=== PATIENT | female | born 1985 | race Caucasian/White ===

== ENCOUNTER 2022-05-30 07:35 | Outpatient (CLI) | payer BC, SELFPAY ==
[2022-05-30 19:30] LABS: Hematocrit 46.5 % (37.0-47.0); Hemoglobin 15.1 g/dL (12.0-15.0); Mean Corpuscular HGB Conc 32.5 g/dl (32-36); Mean Corpuscular Hemoglobin 29.5 pg (26-34); Platelet Count Result 321 k/mm3 (150-375); Red Blood Count 5.11 M/mm3 (4.2-5.4); Red Cell Distribution Width 12.7 % (11.5-14.5); White Blood Count 6.9 K/mm3 (4.5-10.0)
[2022-05-30 20:08] LABS: Alanine Aminotransferase 19 U/L (6-35); Albumin Level 4.1 g/dL (3.5-5.1); Alkaline Phosphatase 109 U/L (38-126); Anion Gap 9 mmol/L (8-16); Aspartate Amino Transferase 39 U/L (14-36); Bilirubin,Total 0.5 mg/dL (0.2-1.3); Blood Urea Nitrogen 10 mg/dL (7-17); Calcium 8.9 mg/dL (8.4-10.2); Carbon Dioxide 24 mmol/L (22-30); Chloride 104 mmol/L (98-107); Cholesterol 193 mg/dL (0-200); Estimated Glomerular Filt Rate > 60; Glucose 79 mg/dL (65-110); HDL Direct 56 mg/dL; Potassium 4.1 mmol/L (3.4-5.0); Sodium 137 mmol/L (137-145); Triglycerides 302 mg/dL (<150)
[2022-05-30 20:19] LABS: LDL Cholesterol Direct 69 mg/dL
== END 2022-05-30 07:36 | disposition home or self-care (01) ==
LOC: ANHBWCLAB 07:37
PROVIDERS: PCP Family Medicine; Visit Provider Family Medicine
DX: Z00.00 Encounter for general adult medical examination without abnormal findings (principal); F41.9 Anxiety disorder, unspecified; K58.9 Irritable bowel syndrome, unspecified; G43.909 Migraine, unspecified, not intractable, without status migrainosus; R00.0 Tachycardia, unspecified
CPT/HCPCS: 36415; 80053; 80061; 84443; 85027

== ENCOUNTER 2022-08-31 12:48 | Emergency (ER) | payer BC, SELFPAY ==
--- NOTE | ~2022-08-31 | CT_ITS ---
EXAMINATION: CT abdomen pelvis w con DATE: 08/31/2022 14:45 INDICATION: Right lower abdominal pain TECHNIQUE: Computed tomography (CT) of the abdomen and pelvis was performed with 100 mL Omnipaque-350 intravenous contrast. Automated exposure control and iterative reconstruction technique were employe d. The dose-length product was 1448.99 mGy-cm. COMPARISON: None FINDINGS: Lung bases are clear. Heart size is normal. No pericardial or pleural effusion. Focal hepatic steatos is at the ligamentum teres. Gallbladder, spleen, pancreas, bilateral adrenal glands and kidneys are n ormal. There are few scattered colonic diverticula without adjacent inflammatory stranding to suggest diverticulitis. There is edematous-appearing bowel wall thickening involving several loops of small bowel in the left abdomen with associated mesenteric hyperemia consistent with an enteritis. The more proximal to distal small bowel appear normal. No obstruction. Normal appendix. Small amount of likel y reactive ascites in the lower abdomen and pelvis. No pneumatosis, abscess or free intraperitoneal g as. Bladder, anteverted uterus and bilateral adnexa are unremarkable. No pathologically enlarged abdo radha or pelvic lymphadenopathy. Mild thoracic and lumbar and moderate lumbosacral spondylosis. IMPRESSION: 1. Edematous wall thickening of a few nonobstructed loops of small bowel in the abdomen consistent wi th an enteritis is most likely infectious or inflammatory in etiology. 2. Likely reactive small amount of ascites in the lower abdomen and pelvis. Reviewed, dictated and finalized at location A. IMPRESSION: 1. Edematous wall thickening of a few nonobstructed loops of small bowel in the abdomen consistent with an enteritis is most likely infectious or inflammatory in etiology. 2. Likely reactive small amount of ascites in the lower abdomen and pelvis.
[2022-08-31 13:08] VITALS: BP 159/90; PULSE 104; RESP 14; TEMP 36.4; O2SAT 99
--- NOTE | 2022-08-31 13:27 | ED.ABDPAIN ---
HPI - Abdominal Pain General Chief Complaint: Abdominal Pain Stated Complaint: abdominal pain Time Seen by Provider: 08/31/22 13:12 Source: patient, RN notes reviewed and old records reviewed Mode of arrival: ambulatory Limitations: no limitations History of Present Illness HPI narrative: This is a 37 year old female who presents for evaluation of right lower abdominal pain. She developed generalizeed abdominal pain yesterday and it has moved to be more right lower abdominal pain. She has had decreased appetite with nausea and vomiting. She has been drinking water today, but her last meal was yesterday afternoon. Her pain is worse with breathing and movement. She has not taken any medication for pain. She rates her pain as 6/10. LMP end of July. Related Data Home Medications Medication Instructions Recorded Confirmed Zyrte BYMOUTH 05/23/22 fluoxetine 40 mg capsule 40 mg PO DAILY 05/23/22 lamotrigine 100 mg tablet 100 mg PO DAILY 05/23/22 norethindrone 1 mg-ethinyl 1 tablet PO DAILY 05/23/22 estradiol 35 mcg (21) tablet (Nortrel) Allergies Allergy/AdvReac Type Severity Reaction Status Date / Time topiramate Allergy Intermediate HIVES Verified 07/09/22 11:40 Review of Systems Constitutional: Constitutional: Denies weakness Cardiovascular: Cardiovascular: Denies syncope, Denies rapid heart rate, Denies irregular heart rhythm, Denies leg edema and Denies dyspnea Respiratory: Respiratory: Denies chest congestion, Denies hemoptysis, Denies excessive phlegm production and Denies dyspnea Gastrointestinal: Gastrointestinal: Reports abdominal pain, Denies hematochezia, Denies diarrhea, Reports nausea and Reports vomiting Genitourinary: Genitourinary: Denies hematuria and Denies dysuria Musculoskeletal: Musculoskeletal: Denies joint swelling, Denies loss of height and Denies muscle weakness Neurologic: Denies syncope, Denies focal weakness and Denies weakness PMFSH Past Medical History Medical History Anxiety Hypertension IBS (irritable bowel syndrome) Tachycardia Surgical History Surgical History (Updated 08/31/22 @ 13:30 by Abigail Jarvis MD) H/O section Family History Family History (Updated 12/01/15 @ 23:19 by DOCTOR UNKNOWN) Grandparent Family history of heart disease in male family member before age 55 Diabetes mellitus Mother Family history of thyroid disease Father Family history of bipolar disorder Cerebrovascular accident Family history of diabetes mellitus in first degree relative Other Family history of cardiovascular disease Family history of malignant neoplasm of breast Hypertension Social History Social History Smoking status: Never smoker Alcohol intake: current Lack of Transportation: No Lack of Food: Never True Current Housing: I Have Housing Concerned About Future Housing: No Difficulty Paying Gas/Electric Bills: No Difficulty Paying for Meds: No Currently Unemployed: No Education: Bachelor's Degree Difficulty w/ Childcare or Family Care: No Living arrangements: 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 Gender identity (if verbalized by the patient): Female Agree to blood products: Yes Exam Const: General: no acute distress and alert Nutritional Appearance: obese Orientation/consciousness: patient oriented x3 Limitations: no limitations HENMT: Head: normal to inspection Eyes: EOM: EOMs intact bilaterally Chest: Chest palpation & inspection: normal inspection of the chest Resp: Effort & Inspection: normal respiratory effort Auscultation: clear to auscultation bilaterally Cardio: Rate: regular rate Rhythm: regular rhythm Heart sounds: no murmurs GI: GI Palp: Yes Soft to palpation, Yes Tenderness to palpation present (GI) (RLQ), No Guarding due to palpation p
[2022-08-31 13:46] LABS: Basophils Percent Auto 0.3 % (0.2-1.2); Eosinophils Absolute Auto 0.1 K/mm3 (0-0.3); Eosinophils Percent Auto 0.5 % (0-4.4); Hematocrit 41.8 % (37.0-47.0); Hemoglobin 14.1 g/dL (12.0-15.0); Immature Granulocyte Absolute 0.05 K/mm3 (0.00-0.031); Immature Granulocyte Percent A 0.4 % (0-0.5); Lymphocytes Absolute Auto 1.73 K/mm3 (0.9-3.2); Lymphocytes Percent Auto 14.6 % (18.3-44.2); Mean Corpuscular HGB Conc 33.7 g/dl (32-36); Mean Corpuscular Hemoglobin 30.3 pg (26-34); Mean Corpuscular Volume 89.9 fl (80-100); Mean Platelet Volume 9.2 fl (7.4-10.4); Monocytes Absolute Auto 0.8 K/mm3 (0.1-0.6); Monocytes Percent Auto 6.3 % (2.6-8.5); Neutrophils Absolute Auto 9.2 K/mm3 (1.3-6.7); Neutrophils Percent Auto 77.9 % (45.5-73.1); Platelet Count Result 367 k/mm3 (150-375); Red Blood Count 4.65 M/mm3 (4.2-5.4); Red Cell Distribution Width 13.5 % (11.5-14.5); White Blood Count 11.8 K/mm3 (4.5-10.0)
[2022-08-31 13:53] LABS: Appearance Urine Cloudy (Clear); Bacteria Urine 1+ /hpf; Bilirubin Urine Negative (Negative); Blood Urine 2+ (Negative); Color Urine Dark Yellow (Yellow); Glucose Urine UA Negative (Negative); Ketones Urine 2+ mg/dL (Negative); Leukocyte Esterase Ur Trace LEU/UL (Negative); Need Manual Microscopic Reviewed; Nitrate Urine Negative (Negative); Protein Urine 1+ mg/dL (Negative); Specific Grav Ur 1.023 (1.001-1.035); Squamous Epithelial Cell Urine Moderate /hpf (Few); pH Urine 5.5 (5.0-9.0)
[2022-08-31] MEDS: ONDANSETRON INJ 4 MG/2 ML VIAL IV PUSH (13:56)
[2022-08-31] MEDS: HYDROmorphone HCL INJ (*CRX) 1 MG/ML SYR 0.5 MG IV PUSH (13:56)
[2022-08-31 13:59] LABS: Alanine Aminotransferase 26 U/L (6-35); Albumin Level 4.4 g/dL (3.5-5.1); Alkaline Phosphatase 106 U/L (38-126); Anion Gap 8 mmol/L (8-16); Aspartate Amino Transferase 28 U/L (14-36); Bilirubin,Total 0.7 mg/dL (0.2-1.3); Blood Urea Nitrogen 9 mg/dL (7-17); Calcium 9.3 mg/dL (8.4-10.2); Carbon Dioxide 26 mmol/L (22-30); Chloride 100 mmol/L (98-107); Estimated CRCL calculation 101 ml/min; Estimated Glomerular Filt Rate > 60; Glucose 91 mg/dL (65-110); Lipase 91 U/L (23-300); Potassium 3.9 mmol/L (3.4-5.0); Sodium 134 mmol/L (137-145)
[2022-08-31 14:03] VITALS: BP 154/70; PULSE 84; RESP 18; O2SAT 100
[2022-08-31 14:12] LABS: Add Urine Microscopic? YES
[2022-08-31] MEDS: metroNIDAZOLE 250 MG TABLET 500 MG PO (15:43)
[2022-08-31] MEDS: CIPROFLOXACIN 500 MG TAB PO (15:44)
[2022-08-31 16:25] VITALS: BP 136/84; PULSE 90; RESP 18; O2SAT 99
== END 2022-08-31 16:27 | disposition home or self-care (01) ==
PROVIDERS: Emergency Provider General Practice; PCP Family Medicine
DX: K52.9 Noninfective gastroenteritis and colitis, unspecified (principal); I10 Essential (primary) hypertension; K58.9 Irritable bowel syndrome, unspecified; F41.9 Anxiety disorder, unspecified; Z79.85 Long-term (current) use of injectable non-insulin antidiabetic drugs
CPT/HCPCS: 36415; 74177; 80053; 81001; 81025; 83690; 85025; 87086; 87088; 96374; 96375; 99284; A9270; J1170; J2405; Q9967

== ENCOUNTER 2023-07-09 01:48 | Day surgery (SDC) | payer BC, SELFPAY ==
--- NOTE | 2023-07-02 17:27 | PC.NURSE ---
Report to the Outpatient Waiting Room, entrance under the green pavilion located off [facility], at time 1330 on date 07/09/23. Planned Procedure Time: 1530. Time changes happen often and if your time is changed the preop area will call you the afternoon before. - You and your visitor will be asked to self-screen and do not enter if you have any COVID symptoms. - A mask is optional within the hospital at this time. Patients may have clear liquids (water, carbonated beverages, clear teas, apple juice) until 3 hours prior to surgery with a maximum of 20 ounces. 1230 - No food from midnight until time of surgery - Infants may have breast milk until 4 hours before surgery, formula 6 hours prior to surgery. - Children will be allowed to drink immediately following surgery. If applicable, please bring a bottle or sippy cup to assist with drinking. Juice, water, soda, and popsicles are readily available. For infants on formula, please bring formula the day of surgery. Pacifiers are allowed. Take the following medications with a SIP of water the morning of surgery: PROZAC, ALBUTEROL INHALER DO NOT STOP ANY OF YOUR OTHER PRESCRIPTION MEDICATIONS PRIOR TO SURGERY ?EXCEPT THE FOLLOWING Medications to discontinue per physician TANIKA MEI Date to take last dose Please no make-up, nail kazakh, hairspray, perfume, deodorant, or body powder the day of surgery. No jewelry (including any body piercings) or valuables the day of surgery, leave them at home. Please take a shower or bath the night before, or the morning of, surgery with an antibacterial soap. Wear comfortable, loose fitting clothing. Children are encouraged to wear pajamas. - Jewelry must be removed prior to entering the operating room. Rings and piercings that are not removed may be cut off. - The hospital will not accept responsibility for valuables. - Please leave all valuables, including medications, at home the day of surgery. If you are going home after surgery, a licensed day haul or farm charter bus driver must drive you home. - NO public transportation without another adult if you receive anesthesia. - We recommend that an adult stay with you for 24 hours following discharge. - We also recommend that you do not drive, make important decision, drink alcoholic beverages, or take any drugs that were not prescribed by your health care provider for at least 24 hours after your discharge time. For Pediatric surgeries, we recommend two adults accompany the child home. Follow any additional instructions given to you from your surgeon. If you or anyone in your household have experienced Covid symptoms in the past week, please notify your surgeon or the nurse liaison at the phone number below for possible testing. Telephone instructions given to PATIENT- TELMA GOODMAN and asked if any additional questions and then verbalized understanding. Patient advised to call surgeon office or pre surgery nurse liaison [phone] if any additional questions.
[2023-07-02 17:41] VITALS: BMI 51.5
--- NOTE | 2023-07-08 14:20 | WPDANESEPPF ---
Anes - Initial Pre Proc Eval Procedure: Operation Date: 07/09/23 14:30 Proposed Procedures p Laparoscopic Bilateral Tubal Sterilization with Fallopian Rings, - Kalyan Elliott MD s Hysteroscopy Dilation and Curettage Glenys Endometrial Ablation - Kalyan Elliott MD Date/Time: 07/08/23 14:20 Surgeon: Kalyan Elliott MD Pre Op Diagnosis: desires sterilizatio, heavy bleeding, dysmenorrhea Patient Data Age: 38 Gender: F Height: 1.63 m Weight: 136.3 kg Allergies Allergy/AdvReac Type Severity Reaction Status Date / Time topiramate Allergy Intermediate HIVES Verified 07/02/23 17:06 Home Medications Medication Instructions Recorded Confirmed Type Zyrtec 1 tab-cap PO DAILY 05/23/22 07/02/23 History albuterol sulfate 90 mcg/actuation 1 inh inhalation Q4H PRN shortness 05/23/22 07/02/23 Rx aerosol inhaler of breath or wheezing #8.5 grams fluoxetine 40 mg capsule 40 mg PO DAILY 05/23/22 07/02/23 History lamotrigine 100 mg tablet 100 mg PO HS 05/23/22 07/02/23 History norethindrone 1 mg-ethinyl 1 tablet PO HS 05/23/22 07/02/23 History estradiol 35 mcg (21) tablet (Nortrel) fluticasone propionate 50 2 spray intranasal DAILY 11/26/22 07/02/23 History mcg/actuation nasal spray,suspension (Flonase Allergy Relief) amlodipine 10 mg tablet 10 mg PO QPM 07/02/23 07/02/23 History azelastine 137 mcg (0.1 %) nasal 1 spray intranasal HS 07/02/23 07/02/23 History spray aerosol losartan 25 mg tablet 25 mg PO QPM 07/02/23 07/02/23 History metoprolol succinate 25 mg 25 mg PO HS 07/02/23 07/02/23 History tablet,extended release 24 hr Patient hx anesthesia problems: none Family hx anesthesia problems: none Results Review: All pre-operative results and documents have been reviewed as part of the pre-operative evaluation. [facility] Past Medical History Medical History Anxiety Asthma Bipolar disorder GERD (gastroesophageal reflux disease) Hypertension IBS (irritable bowel syndrome) Tachycardia Surgical History Surgical History H/O section Family History Family History Grandparent Family history of heart disease in male family member before age 55 Diabetes mellitus Mother Family history of thyroid disease Father Family history of bipolar disorder Cerebrovascular accident Family history of diabetes mellitus in first degree relative Other Family history of cardiovascular disease Family history of malignant neoplasm of breast Hypertension Social History Social History Smoking status: Never smoker Alcohol intake: current Lack of Transportation: No Lack of Food: Never True Current Housing: I Have Housing Concerned About Future Housing: No Difficulty Paying Gas/Electric Bills: No Difficulty Paying for Meds: No Currently Unemployed: No Education: Bachelor's Degree Difficulty w/ Childcare or Family Care: No Living arrangements: 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 Gender identity (if verbalized by the patient): Female Spiritual care concerns: No Agree to blood products: Yes Anes - Eval Final PreProcedure Day of Procedure 07/08/23 14:20 Patient weight: super morbidly obese Heart: regular rate and rhythm Lungs: clear to auscultation Airway: Mallampati scale class III Neurological: alert and oriented Last oral intake: >/= 8 hours ASA classification: III Emergent: no Anesthetic plan: proceed Anesthesia type and monitoring: general ETT and standard monitoring Results Review: All pre-operative results and documents have been reviewed as part of the pre-operative evaluation. Informed Consent: The patient's anesthetic plan and its attendant risks and benefits were discussed with the ken
[2023-07-09] VITALS (8 sets, daily range): BP systolic 123–154; BP diastolic 74–85; PULSE 75–83; RESP 11–15; TEMP 36.4–36.8; O2SAT 98–100; BMI 50.3
--- NOTE | 2023-07-09 12:22 | PM.IMHP ---
H&P: HPI History of Present Illness Date/Time: 07/09/23 12:22 Chief Complaint: Heavy periods Narrative: 38 yo who takes Nortrel continuously to control heavy menses. However, now her dog food dough mixer would like her to get off the pill. She does not desire future childbearing, and is interested in surgical management of her problem. Review of Systems Review of Systems: All systems reviewed & are unremarkable except as noted in HPI and below PMFSH Past Medical History Medical History Anxiety Asthma Bipolar disorder GERD (gastroesophageal reflux disease) Hypertension IBS (irritable bowel syndrome) Tachycardia Surgical History Surgical History H/O section Family History Family History Grandparent Family history of heart disease in male family member before age 55 Diabetes mellitus Mother Family history of thyroid disease Father Family history of bipolar disorder Cerebrovascular accident Family history of diabetes mellitus in first degree relative Other Family history of cardiovascular disease Family history of malignant neoplasm of breast Hypertension Social History Social History Smoking status: Never smoker Alcohol intake: current Lack of Transportation: No Lack of Food: Never True Current Housing: I Have Housing Concerned About Future Housing: No Difficulty Paying Gas/Electric Bills: No Difficulty Paying for Meds: No Currently Unemployed: No Education: Bachelor's Degree Difficulty w/ Childcare or Family Care: No Living arrangements: 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 Gender identity (if verbalized by the patient): Female Spiritual care concerns: No Agree to blood products: Yes Meds Home Medications and Allergies Home Medications Medication Instructions Recorded Confirmed Type Zyrtec 1 tab-cap PO DAILY 05/23/22 07/02/23 History albuterol sulfate 90 mcg/actuation 1 inh inhalation Q4H PRN shortness 05/23/22 07/02/23 Rx aerosol inhaler of breath or wheezing #8.5 grams fluoxetine 40 mg capsule 40 mg PO DAILY 05/23/22 07/02/23 History lamotrigine 100 mg tablet 100 mg PO HS 05/23/22 07/02/23 History norethindrone 1 mg-ethinyl 1 tablet PO HS 05/23/22 07/02/23 History estradiol 35 mcg (21) tablet (Nortrel) fluticasone propionate 50 2 spray intranasal DAILY 11/26/22 07/02/23 History mcg/actuation nasal spray,suspension (Flonase Allergy Relief) amlodipine 10 mg tablet 10 mg PO QPM 07/02/23 07/02/23 History azelastine 137 mcg (0.1 %) nasal 1 spray intranasal HS 07/02/23 07/02/23 History spray aerosol losartan 25 mg tablet 25 mg PO QPM 07/02/23 07/02/23 History metoprolol succinate 25 mg 25 mg PO HS 07/02/23 07/02/23 History tablet,extended release 24 hr Allergies Allergy/AdvReac Type Severity Reaction Status Date / Time topiramate Allergy Intermediate HIVES Verified 07/02/23 17:06 Exam Const: Orientation/consciousness: patient oriented x3 Other: Well-developed, well-nourished female in no acute distress. Neck: Thyroid: thyroid normal Lymphatic: no lymphadenopathy noted (in neck, axilla or inguinal nodes) Resp: Effort & Inspection: normal respiratory effort Auscultation: clear to auscultation bilaterally Cardio: Rate: regular rate Rhythm: regular rhythm Heart sounds: S1 normal heart sound present and S2 normal heart sound present GI: Other: ABD: Soft, nontender, nondistended. No guarding or rebound tenderness. No hepatosplenomegaly. : General: Yes no CVA tenderness Other: External genitalia: normal female hair distribution, without lesion. Urethral meatus: no lesion, non prolapsed. Bladder: no mass, nontender Vagina: well-estr
[2023-07-09] MEDS: LACTATED RINGERS 1,000 ML 30 ML IV CONT ×2 (13:47→17:15)
[2023-07-09] MEDS: ACETAMINOPHEN 500 MG TABLET 1000 MG PO (13:47)
[2023-07-09] MEDS: KETOROLAC 15 MG/ML VIAL (*BKC) IV PUSH (13:47)
[2023-07-09] MEDS: SCOPOLAMINE 1 MG PATCH 1 PATCH TRANSDERM (14:10)
--- NOTE | 2023-07-09 14:38 | WPDHPUPDATE1 ---
History and Physical Update Update Date/Time: 07/09/23 14:38 History and Physical has been reviewed, including an updated exam of the patient. There are NO changes in the patient's condition. Risks, benefits, and alternatives have been discussed and questions answered. Patient agrees to proceed with procedure.
[2023-07-09] MEDS: ceFAZolin SODIUM 1 GM VIAL 2 GM IV PUSH (16:20)
[2023-07-09] MEDS: LIDOCAINE HCL 1% LOCAL INJ 20 ML VIAL 30 ML INFILTRATE (16:24)
--- NOTE | 2023-07-09 16:34 | P.OP_ITS ---
Procedure Note - Detailed Date of Procedure 07/09/23 Pre-op Diagnosis Menometrorrhagia Desired sterility Post-op Diagnosis Same Procedure Performed Laparoscopic bilateral tubal ligation with Falope rings Hysteroscopy Dilation and sharp curettage Attempted endometrial ablation Surgeon Kalyan Elliott MD Anesthesia General and Local (1% lidocaine) Findings Normal-appearing uterus, tubes and ovaries. The endometrial cavity was unremarkable. Both tubal ostia were visible. Description of Procedure The patient was taken to the operating room where general endotracheal anesthesia was administered. She was prepared and draped in the usual sterile fashion in dorsal lithotomy position. The bladder was drained with a red rubber catheter. A sterile speculum was placed into the vagina. The anterior lip of the cervix was grasped with a single-tooth tenaculum. The acorn uterine manipulator was placed. The speculum was withdrawn. Gloves were changed and attention was turned the abdomen. An infraumbilical skin incision was made with a scalpel. The abdomen was tented and a 5mm bladeless trocar was advanced under direct laparoscopic visualization. Pneumoperitoneum was administered using carbon dioxide gas. A survey of the pelvis and abdomen revealed the findings noted above. A second skin incision was made in the midline above the symphysis pubis and an 8mm bladeless trocar was advanced under direct laparoscopic visualization. The fallopian tube on the right side was followed out to the fimbriated end for identification. It was then grasped in the midportion with the Falope ring applicator. The Falope ring was tented applied. A good loop of tube was noted to be distal to the ring. Hemostasis was excellent. The device was reloaded and the contralateral tube was similarly identified and ligated. An excellent application was noted here as well. A total of 6mL of 1% lidocaine was infiltrated into the serosa of the proximal tubes for postoperative anesthesia. The ports were withdrawn. The gas was allowed to escape. The skin incisions were reapproximated using interrupted subcuticular sutures of 4 0 Vicryl. Dermaflex was applied externally. Attention was directed back to the vagina, where the acorn manipulator was withdrawn and the speculum reintroduced. Ten mL of 1% lidocaine was administered in a paracervical block. The cervix was then gently dilated using Hegar dilators until an 8 mm dilator could be passed. Hysteroscopy was performed using sterile saline as a distention medium. Findings are as noted above. Sharp curettage was then performed, and endometrial curettings were collected on a Telfa pad and passed off to be sent to pathology. Finally, the the Glenys device was advanced and endometrial ablation attempted. However, an error message suggested possible uterine perforation. A second look was taken with the hysteroscope, but no obvious perforation was noted. It was noted that the uterus was sharply anteverted, increasing the chances of perforation. At this point the procedure was term inated. The tenaculum was removed. Hemostasis was excellent. Sponge, lap, needle and instrument counts were correct. The patient was awakened and taken to the recovery room in stable condition. I was present and scrubbed through the entire procedure. Implants Falope rings x 2 Estimated Blood Loss 5 Drains No Packing No Pathology Yes (endometrial curettings) Complications Other complications (Possible uterine perforation) Condition Stable Disposition PACU
[2023-07-09] MEDS: ONDANSETRON INJ 4 MG/2 ML VIAL IV PUSH (16:48)
[2023-07-09] MEDS: fentaNYL CITRATE INJ (*CRX) 100 MCG/2 ML VIAL 25 MCG IV PUSH ×2 (16:51→16:59)
[2023-07-09] MEDS: diphenhydrAMINE HCl INJ 50 MG/ML VIAL 12.5 MG IV PUSH (17:41)
[2023-07-09] MEDS: oxyCODONE HCL (*CRX) 5 MG TAB IR PO (18:00)
== END 2023-07-09 18:51 | disposition home or self-care (01) ==
PROVIDERS: PCP Family Medicine; Visit Provider Obstetrics & Gynecology
PROC: (CPT 58671; principal; 2023-07-09 14:30)
PROC: 0U5B8ZZ Destruction of Endometrium, Via Natural or Artificial Opening Endoscopic (ICD-10-PCS; CPT 58563; 2023-07-09 14:30)
DX: N92.1 Excessive and frequent menstruation with irregular cycle (principal); Z30.2 Encounter for sterilization; Z53.8 Procedure and treatment not carried out for other reasons; J45.909 Unspecified asthma, uncomplicated; I10 Essential (primary) hypertension; K21.9 Gastro-esophageal reflux disease without esophagitis; F41.9 Anxiety disorder, unspecified; E66.01 Morbid (severe) obesity due to excess calories; Z68.43 Body mass index [BMI] 50.0-59.9, adult; Z79.51 Long term (current) use of inhaled steroids
CPT/HCPCS: 58563; 58671; 88305; A4264; A9270; J0690; J1100; J1200; J1885; J2250; J2405; J2704; J3010; J7120

== ENCOUNTER 2023-10-28 09:41 | Outpatient (CLI) | payer BC, SELFPAY ==
[2023-10-28 19:25] LABS: Alanine Aminotransferase 34 U/L (6-35); Albumin Level 4.4 g/dL (3.5-5.1); Alkaline Phosphatase 153 U/L (38-126); Anion Gap 9 mmol/L (4-12); Aspartate Amino Transferase 53 U/L (14-36); Bilirubin,Total 0.6 mg/dL (0.2-1.3); Blood Urea Nitrogen 11 mg/dL (7-17); Calcium 9.4 mg/dL (8.4-10.2); Carbon Dioxide 27 mmol/L (22-30); Chloride 101 mmol/L (98-107); Cholesterol 173 mg/dL (0-200); Estimated Glomerular Filt Rate > 60; Glucose 89 mg/dL (65-110); HDL Direct 53 mg/dL; Potassium 4.2 mmol/L (3.4-5.0); Sodium 137 mmol/L (137-145); Triglycerides 168 mg/dL (<150)
[2023-10-28 19:37] LABS: LDL Cholesterol Direct 83 mg/dL
[2023-10-28 19:44] LABS: Basophils Absolute Auto 0.1 K/mm3 (0.0-0.1); Basophils Percent Auto 0.6 % (0.2-1.2); Eosinophils Absolute Auto 0.1 K/mm3 (0-0.3); Eosinophils Percent Auto 1.4 % (0-4.4); Hematocrit 42.4 % (37.0-47.0); Hemoglobin 13.7 g/dL (12.0-15.0); Immature Granulocyte Absolute 0.03 K/mm3 (0.00-0.031); Immature Granulocyte Percent A 0.3 % (0-0.5); Lymphocytes Absolute Auto 1.52 K/mm3 (0.9-3.2); Lymphocytes Percent Auto 17.6 % (18.3-44.2); Mean Corpuscular HGB Conc 32.3 g/dl (32-36); Mean Corpuscular Hemoglobin 30.2 pg (26-34); Mean Corpuscular Volume 93.6 fl (80-100); Monocytes Absolute Auto 0.6 K/mm3 (0.1-0.6); Monocytes Percent Auto 6.6 % (2.6-8.5); Neutrophils Absolute Auto 6.3 K/mm3 (1.3-6.7); Neutrophils Percent Auto 73.5 % (45.5-73.1); Platelet Count Result 322 k/mm3 (150-375); Red Blood Count 4.53 M/mm3 (4.2-5.4); Red Cell Distribution Width 13.2 % (11.5-14.5); White Blood Count 8.6 K/mm3 (4.5-10.0)
== END 2023-10-28 09:42 | disposition home or self-care (01) ==
PROVIDERS: PCP Nurse Practitioner Adult Health; Visit Provider Nurse Practitioner Adult Health
DX: I10 Essential (primary) hypertension (principal); R00.2 Palpitations; E78.1 Pure hyperglyceridemia
CPT/HCPCS: 36415; 80053; 80061; 83735; 84443; 85025

== ENCOUNTER 2023-11-08 07:51 | Outpatient (CLI) | payer BC, SELFPAY ==
--- NOTE | ~2023-11-08 | US_ITS ---
EXAMINATION: US abdomen limited DATE: 11/08/2023 08:16 INDICATION: Abnormal levels of other serum enzymes. TECHNIQUE: Multiple grayscale and Doppler ultrasound images of the abdomen were obtained. COMPARISON: CT abdomen and pelvis 08/31/2022 FINDINGS: The visualized portions of the head and body of the pancreas are normal. There is diffuse h epatic steatosis. There is normal flow in main portal vein. The gallbladder is normal in size. No gal lstones or gallbladder wall thickening. There is no sonographic Marie's sign. The common duct is nor mal and measures 3 mm. IMPRESSION: 1. Diffuse hepatic steatosis. Reviewed, dictated and finalized at location A.
== END 2023-11-08 07:52 ==
LOC: MICIMG 07:51
PROVIDERS: PCP Nurse Practitioner Adult Health; Visit Provider Nurse Practitioner Adult Health
DX: R74.8 Abnormal levels of other serum enzymes (principal); K76.0 Fatty (change of) liver, not elsewhere classified
CPT/HCPCS: 76705

== ENCOUNTER 2023-11-27 09:26 | Outpatient (CLI) | payer BC, SELFPAY ==
[2023-11-27 19:30] LABS: Alanine Aminotransferase 35 U/L (6-35); Albumin Level 4.5 g/dL (3.5-5.1); Alkaline Phosphatase 132 U/L (38-126); Aspartate Amino Transferase 72 U/L (14-36); Bilirubin,Total 0.6 mg/dL (0.2-1.3)
== END 2023-11-27 09:27 | disposition home or self-care (01) ==
LOC: ANHBWCLAB 09:28
PROVIDERS: PCP Nurse Practitioner Adult Health; Visit Provider Nurse Practitioner Adult Health
DX: R74.8 Abnormal levels of other serum enzymes (principal)
CPT/HCPCS: 36415; 80076

== ENCOUNTER 2024-02-02 09:18 | Outpatient (CLI) | payer OTHER, SELFPAY ==
[2024-02-02 18:51] LABS: Hematocrit 44.3 % (37.0-47.0); Hemoglobin 13.9 g/dL (12.0-15.0); Mean Corpuscular HGB Conc 31.4 g/dl (32-36); Mean Corpuscular Hemoglobin 28.9 pg (26-34); Mean Corpuscular Volume 92.1 fl (80-100); Mean Platelet Volume 10.7 fl (7.4-10.4); Platelet Count Result 337 k/mm3 (150-375); Red Blood Count 4.81 M/mm3 (4.2-5.4); Red Cell Distribution Width 13.5 % (11.5-14.5); White Blood Count 6.8 K/mm3 (4.5-10.0)
[2024-02-02 19:02] LABS: Alanine Aminotransferase 24 U/L (6-35); Albumin Level 4.4 g/dL (3.5-5.1); Alkaline Phosphatase 132 U/L (38-126); Anion Gap 10 mmol/L (4-12); Aspartate Amino Transferase 40 U/L (14-36); Bilirubin,Total 0.5 mg/dL (0.2-1.3); Blood Urea Nitrogen 8 mg/dL (7-17); Calcium 9.2 mg/dL (8.4-10.2); Carbon Dioxide 26 mmol/L (22-30); Chloride 101 mmol/L (98-107); Cholesterol 168 mg/dL (0-200); Estimated Glomerular Filt Rate > 60; Glucose 78 mg/dL (65-110); HDL Direct 51 mg/dL; Potassium 4.4 mmol/L (3.4-5.0); Sodium 137 mmol/L (137-145); Triglycerides 122 mg/dL (<150)
[2024-02-02 19:13] LABS: LDL Cholesterol Direct 74 mg/dL
== END 2024-02-02 09:19 | disposition home or self-care (01) ==
LOC: ANHBWCLAB 09:19
PROVIDERS: PCP Nurse Practitioner Adult Health; Visit Provider Nurse Practitioner Adult Health
DX: Z13.9 Encounter for screening, unspecified (principal)
CPT/HCPCS: 36415; 80053; 80061; 82607; 85027

== ENCOUNTER 2024-07-07 08:27 | Outpatient (CLI) | payer OTHER, SELFPAY ==
--- OUTSIDE RECORDS SUMMARY | 2024-07-07 08:42 | XMS_ITS | Encounter Summary ---
Author Organization [facility] Address [facility] [place] [address] Care Team Providers Care Peoplesoft Administrator Name Role Phone Iva Jeronimo MD Unavailable [phone] Ashley Jose MD Primary Care Provider [phone] Fredy Alonzo MD Primary Care Provider [phone] Tanya Gamino NP Primary Care Provider [phone] Encounter Details Date Type Department Care Team (Late Contact Info) Description 07/31/2016 Abstract [facility] AT [address] [address] Griselda Bhakta MA Social History Tobacco Use Types Packs/Day Years Used Date Smoking Tobacco: Never Smokeless Tobacco: Never Alcohol Use Standard Drinks/Week Comments Yes 0 (1 standard drink = 0.6 oz pur e alcohol) rare Comments Unknown Sex and Gender Information Value Date Recorded Sex Assigned at Not on file Legal Sex Female 11:37 PM CDT Gender Identity Not on file Sexual Orientation Not on file 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 [address] [address] documented as of this encounter Procedures Procedure Name Priority Date/Time Associated Diagnosis Comments CBC (OUTSIDE LAB) Routine 07/08/2018 COMPREHENSIVE METABOLIC PANEL Routine 07/08/2018 LIPID PANEL Routine 07/08/2018 HEMOGLOBIN, GLYCOSYLATED Routine 07/08/2018 THYROID STIM HORMONE TSH Routine 07/08/2018 CBC (OUTSIDE LAB) Routine 07/29/2016 COMPREHENSIVE METABOLIC PANEL Routine 07/29/2016 LIPID PANEL Routine 07/29/2016 THYROID STIM HORMONE TSH Routine 07/29/2016 VITAMIN D, 25 OH Routine 07/29/2016 documented in this encounter Results * (ABNORMAL) COMPREHENSIVE METABOLIC PANEL (07/08/2018) Pathologist [facility] SODIUM S/P/B 140 POTASSIUM S/P/B 4.7 CO2 22 CHLORIDE S/P/B 102 GLUCOSE 92 mg/dL CALCIUM S/P/B 9.3 BUN 7 CREATININE S/P/B 0.79 0.5 - 1.0 EGFR AFR. AMER. 112(A) <=90 EGFR NON-AFR. AMER. 97(A) <=90 ALKALINE PHOSPHATASE S/P/B 114 ALT 21 AST 24 BILIRUBIN TOTAL S/P/B 0.2 ALBUMIN S/P/B 4.1 3.5 - 5.0 TOTAL PROTEIN S/P/B 7.1 GLOBULIN 3.0 07/08/2018 us Doc [facility] Abstract LABORATORY Edited Resul t - Final * CBC (OUTSIDE LAB) (07/08/2018) Pathologist [facility] WBC 8.9 HGB 13.8 HCT 41.2 PLT 363 07/08/2018 us Doc [facility] Abstract LAB-OUTSIDE/ABSTRACTED Final Result * LIPID PANEL (07/08/2018) Pathologist [facility] CHOLESTEROL 158 HDL 54 TRIGLYCERIDES 230 LDL (CALCULATED) 58 07/08/2018 us Doc [facility] Abstract LABORATORY Final Result * HEMOGLOBIN, GLYCOSYLATED (07/08/2018) Pathologist [facility] HGB A1C 5.1 07/08/2018 us Doc [facility] Abstract LABORATORY Final Result * THYROID STIM HORMONE, TSH (07/08/2018) Pathologist [facility] TSH 0.837 07/08/2018 us Doc [facility] Abstract LABORATORY Final Result * (ABNORMAL) COMPREHENSIVE METABOLIC PANEL (07/29/2016) Pathologist [facility] SODIUM S/P/B 137 POTASSIUM S/P/B 4.6 CO2 23 CHLORIDE S/P/B 96 GLUCOSE 85 CALCIUM S/P/B 9.5 BUN 9 CREATININE S/P/B 0.8 0.5 - 1.0 EGFR AFR. AMER. 112(A) <=90 EGFR NON-AFR. AMER. 97(A) <=90 ALKALINE PHOSPHATASE S/P/B 97 ALT 17 AST 25 BILIRUBIN TOTAL S/P/B 0.3 ALBUMIN S/P/B 4.1 3.5 - 5.0 TOTAL PROTEIN S/P/B 7.1 GLOBULIN 3.0 07/29/2016 us Doc [facility] Abstract LABORATORY Final Result * CBC (OUTSIDE LAB) (07/29/2016) Pathologist [facility] WBC 8.6 HGB 13.7 HCT 40 PLT 318 07/29/2016 us Doc [facility] Abstract LAB-OUTSIDE/ABSTRACTED Edite d Result - Final * LIPID PANEL (07/29/2016) CHOLESTEROL 167 HDL 59 TRIGLYCERIDES 217 LDL (CALCULATED) 65 07/29/2016 us Doc [facility] Abstract LABORATORY Final Result * THYROID STIM HORMONE, TSH (07/29/2016) TSH 1.310 07/29/2016 us Doc [facility] Abstract LABORATORY Final Result * VITAMIN D, 25 OH (07/29/2016) VITAMIN D 25 HYDROXY S/P/B 16.3 07/29/2016 us Doc [facility] Abstract LABORATORY Final Result documented in this encounter Visit Diagnoses Not on filedocumented in this encounter Additional Health Concerns Assessment Noted Time A Body Mass Index follow-up plan has been documented for the patient 03/08/2016 1:54 AM CDT documented as of this encounter Care Teams Peoplesoft Administrator Relationship Specialty Start Date End Date Ashley Jose MD [address] [place] [address] PCP - General INTERNAL MEDICINE 05/05/16 06/16/22 Fredy Alonzo MD [address] [place] [address] PCP - General 06/17/22 12/28/23 Tanya Gamino NP [address] [place] [address] PCP - General 12/29/23 Iva Jeronimo MD Three [facility]. [facility] [address] [place], [place] [address] [place] Ceramic Tile Setter CARDIOVASCULAR DISEASE 10/04/15 documented as of this encounter
--- OUTSIDE RECORDS SUMMARY | 2024-07-07 08:42 | XMS_ITS | Encounter Summary ---
Author Organization [facility] Address [facility] [place] [address] Care Team Providers Care Wooden Tank Erector Name Role Phone Iva Jeronimo MD Unavailable [phone] Ashley Jose MD Primary Care Provider [phone] Fredy Alonzo MD Primary Care Provider [phone] Tanya Gamino NP Primary Care Provider [phone] Encounter Details Date Type Department Care Team (Latest Contact Info) Description 03/10/2018 Abstract [facility] , Luis E Wu MD Social History Tobacco Use Types Packs/Day Years [...] Encounters Date Type Department Care Team (Late st Contact Info) Description 01/06/2025 9:15 AM CDT Office Visit [facility], [address] [place], [place] [id number] Iva Jeronimo MD Three [facility]. [address] [place], [place] [id number] documented as of this encounter Visit Diagnoses Not on filedocumented in this encounter Additional Health Concerns Assessment Noted Time A Body Mass Index follow-up plan has been documented for the patient 03/08/2016 1:54 AM CDT documented as of this encounter Care Teams Wooden Tank Erector Relationship Specialty Start Date End Date Ashley Jose MD [address] [place] [address] PCP - General INTERNAL MEDICINE 05/05/16 06/16/22 Fredy Alonzo MD [address] [place] [address] PCP - General 06/17/22 12/28/23 Tanya Gamino NP [address] [place] [address] PCP - General 12/29/23 Iva Jeronimo MD [facility]. [facility] [place] [address] [place] [address] Brady Course Instructor CARDIOVASCULAR DISEASE 10/04/15 documented as of this encounter
--- OUTSIDE RECORDS SUMMARY | 2024-07-07 08:42 | XMS_ITS ---
Author Organization [employer], [facility] Address [address] [facility] [place] [address] Care Team Providers Care Drill Presser Name Role Phone Unavailable Primary Care Physician Unavailab le Medications Name Start Date Expiration Date SIG Comments Mirena 21 mcg/24 hours (8 yrs) 52 mg intrauterine device 09/05/2023 09/06/2023 place 1 device by intrauterine route once Payers Insurance Name Company Name Plan Name Plan Number Policy Number Policy Group Number Start Date [place] [id number] N/A History of Encounters Visit Date Visit Type Provider 09/05/2023 My-IUD Tele-Med Consult Dr. Sohan Mccain MD
--- OUTSIDE RECORDS SUMMARY | 2024-07-07 08:42 | XMS_ITS | Encounter Summary ---
Author Organization [facility] Address [facility] [place] [address] Care Team Providers Care Chief Technical Officer Name Role Phone Iva Jeronimo MD Unavailable [phone] Ashley Jose MD Primary Care Provider Fredy Alonzo MD Primary Care Provider [phone] Tanya Gamino NP Primary Care Provider [phone] Encounter Details Date Type Department Care Team (Late st Contact Info) Description 06/13/2022 Abstract [facility] [id number] Griselda Bhakta MA Social History Tobacco Use Types Packs/Day Years Used Date Smoking Tobacco: Never Smokeless Tobacco: Never Comments:I grew up in a [facility] with second hand smoke bit have never smoked myself. 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 No / Unsure 06/12/2022 12:07 PM HAND BRUSH FILLER documented as of this encounter Plan of Treatment Upcoming Encounters Date Type Department Care Team (Late st Contact Info) Description 01/06/2025 9:15 AM CDT Office Visit [facility], [address] [place] [address] Iva Jeronimo MD Three [facility]. [address] [place], [place] [id number] documented as of this encounter Procedures Procedure Name Priority Date/Time Associated Diagnosis Comments CBC (OUTSIDE LAB) Routine 05/30/2022 COMPREHENSIVE METABOLIC PANEL Routine 05/30/2022 LIPID PANEL Routine 05/30/2022 THYROID STIM HORMONE TSH Routine 05/30/2022 documented in this encounter Results * THYROID STIM HORMONE, TSH (05/30/2022) TSH 1.600 05/30/2022 us Default History Genericprovider LABORATORY Final Result * LIPID PANEL (05/30/2022) CHOLESTEROL 193 HDL 69 TRIGLYCERIDES 302 DIRECT LDL 69 05/30/2022 us Default History Genericprovider LABORATORY Final Result * COMPREHENSIVE METABOLIC PANEL (05/30/2022) SODIUM S/P/B 137 POTASSIUM S/P/B 4.1 CO2 24 CHLORIDE S/P/B 104 GLUCOSE 79 mg/dL CALCIUM S/P/B 8.9 BUN 10 CREATININE S/P/B 0.90 0.5 - 1.0 EGFR NON-AFR. AMER. >60 <=90 ALKALINE PHOSPHATASE S/P/B 109 ALT 19 AST 39 BILIRUBIN TOTAL S/P/B 0.5 ALBUMIN S/P/B 4.1 3.5 - 5.0 TOTAL PROTEIN S/P/B 8.0 05/30/2022 us Default History Genericprovider LABORATORY Final Result * CBC (OUTSIDE LAB) (05/30/2022) WBC 6.9 HGB 15.1 HCT 46.5 PLT 321 05/30/2022 us Default History Genericprovider LAB-OUTSIDE/ABST RACTED Final Result documented in this encounter Visit Diagnoses Not on filedocumented in this encounter Additional Health Concerns Assessment Noted Time A Body Mass Index follow-up plan has been documented for the patient 03/08/2016 1:54 AM CDT documented as of this encounter Care Teams Chief Technical Officer Relationship Specialty Start Date End Date Ashley Jose MD [address] [place] [address] PCP - General INTERNAL MEDICINE 05/05/16 06/16/22 Fredy Alonzo MD [address] [place] [address] PCP - General 06/17/22 12/28/23 Tanya Gamino NP [address] [place] [address] PCP - General 12/29/23 Iva Jeronimo MD Three [facility]. [facility] [address] [place] [address] [place] Crabber CARDIOVASCULAR DISEASE 10/04/15 documented as of this encounter
--- OUTSIDE RECORDS SUMMARY | 2024-07-07 08:42 | XMS_ITS | Clinical Summary ---
Author Organization [facility] Address [address] [facility] [place] [address] Phone Care Team Providers Care String Laster Name Role Phone Ashley Jose MD Primary Care Provider [phone] Allergies Active Allergy Reactions Criticality Noted Date Comments Topiramate Shortness of Breath High 02/29/2016 Medications metoprolol Succinate (TOPROL-XL) 25 MG TABLET SR 24 HR Take 25 mg by mouth daily. Active lamoTRIgine (LAMICTAL) 100 MG Tablet Take 100 mg by mouth daily. Active lamoTRIgine (LAMICTAL) 25 MG Tablet Take 25 mg by mouth daily. Active other by Other route. Active FLUoxetine (PROZAC) 40 MG Capsule Take 40 mg by mouth daily. Active Multiple Vitamin (MULTI-VITAMIN PO) Take by mouth. Active diphenhydrAMINE HCl (BENADRYL PO) Take by mouth. Active Active Problems No known active problems Social History Tobacco Use Types Packs/Day Years Used Date Smoking Tobacco: Never Smokeless Tobacco: Never Alcohol Use Standard Drinks/Week Comments Not Currently 0 (1 standard drink = 0.6 oz pur e alcohol) Sexually Active Control Partners Comments Not Currently Comments Unknown Sex and Gender Information Value Date Recorded Sex Assigned at Not on file Legal Sex Female 12:02 PM CDT Gender Identity Not on file Sexual Orientation Not on file Last Filed Vital Signs Vital Sign Reading Time Taken Comments Blood Pressure 110/76 07/04/2021 11:01 AM PONY ROUGHER Pulse 88 07/04/2021 11:01 AM PONY ROUGHER Temperature 37 C (98.6 F) 07/04/2021 11:01 AM PONY ROUGHER Respiratory Rate 15 07/04/2021 11:01 AM PONY ROUGHER Oxygen Saturation 98% 07/04/2021 11:01 AM PONY ROUGHER Inhaled Oxygen Concentration - - Weight - - Height - - Body Mass Index - - Plan of Treatment Health Maintenance Due Date Last Done Comments Hepatitis C Virus (HCV) Screening 1983 Hepatitis B Immunization (1 of 3 - 19+ 3-dose series) 2002 Pap Smear 2004 Cervical Cancer Screening (CCS) 2013 HPV/Cotest 2013 Discussion re Starting/Frequency of Mammograms 2023 Influenza Immunization (#1) 2024 04/16/2021 SARS-COV-2 Immunization ( season) 2024 04/16/2021, 08/13/2020, 07/20/2020 Respiratory Syncytial Virus (RSV) Immunization (Adult) (1 - 1-dose 75+ series) 2058 DTaP/Tdap/Td Immunization Discontinued 05/17/2010 TdaP Immunization Completed 05/17/2010 Meningococcal Immunization (ACWY) Aged Out No longer eligible based on patient's age to complete this topic Pneumococcal Immunization Combined Aged Out No longer eligible based on patient's age to complete this topic Rotavirus Immunization Aged Out No lo nger eligible based on patient's age to complete this topic Insurance Care Teams String Laster Relationship Specialty Start Date End Date Ashley Jose MD [address] [place] [address] PCP - General Internal Medicine 07/04/21
--- OUTSIDE RECORDS SUMMARY | 2024-07-07 08:42 | XMS_ITS | Clinical Summary ---
Author Organization [facility] Address [address] [place] [address] Care Team Providers Care Barman Name Role Phone Iva Jeronimo MD Unavailable [phone] Tanya Gamino NP Primary Care Provider [phone] Allergies Active Allergy Reactions Criticality Noted Date Comments Topiramate Shortness of Breath High 02/29/2016 Medications lamoTRIgine (LAMICTAL) 100 MG tablet Take 1 tablet (100 mg total) by mouth daily. 7 Active fluoxetine 40 MG capsule Take 1 capsule (40 mg total) by mouth daily. 8 Active cetirizine (ZYRTEC) 10 MG tablet 1 Active albuterol sulfate HFA 108 (90 Base) MCG/ACT inhaler INHALE 1 PUFF BY MOUTH EVERY 4 HOURS NEEDED FOR SHORTNESS OF BREATH OR WHEEZING 3 Active azelastine (ASTELIN) 0.1 % nasal sprayIndication s:Allergic rhinitis, unspecified seasonality, unspecified trigger 2 sprays by Nasal route nightly at bedtime. Use in each nostril as directed 30 mL 11 3 Active amLODIPine (NORVASC) 10 MG tablet Take 1 tablet (10 mg total) by mouth daily. 3 Active losartan (COZAAR) 25 MG tablet Take 1 tablet (25 mg total) by mouth daily. Active omeprazole (PRILOSEC) 40 MG capsule Take 1 capsule (40 mg total) by mouth daily. 4 Active ZEPBOUND 2.5 MG/0.5ML injection Inject 2.5 mg into the skin once a week. 4 Active levonorgestrel (MIRENA, 52 MG,) 20 MCG/DAY IUD 1 Intra Uterine Device by Intrauterine route once. Active metoprolol succinate ER (TOPROL-XL) 25 MG 24 hr tablet TAKE 1 TABLET(25 MG) BY MOUTH DAILY 90 tablet 2 4 Active Active Problems Problem Noted Date Diagnosed Date Fatty liver disease, nonalcoholic 11/08/2023 Primary hypertension 08/27/2016 Vitamin D deficiency 07/30/2016 Morbid obesity ([facility]) 02/29/2016 Shortness of breath 12/02/2014 Sinus tachycardia 03/15/2014 Hypertriglyceridemia Palpitations Essential hypertension Immunizations Name Administration Dates Next Due Tdap (Generic) 05/17/2010 Family History Medical History Relation Comments Heart Attack Cousin 42 Alcohol Abuse Father Bipolar disorder Father Depression Father Diabetes Father Drug Abuse Father Early Father Suicide Hypertension Father Not 100% sure Mental Health Father Bi-Polar - Decea sed Stroke Father Mini Strokes - D eceased Suicide Father Muscular dystrophy Maternal Aunt Diabetes Maternal Grandfather Cancer Maternal Grandmother Throat - De ceased Mental Health Maternal Uncle Schizophrenic Hypertension Mother Family history is positive f or coronary artery disease, stroke, diabetes, dyslipidemia/hyperlipidemia. Other Cancer Paternal Aunt 1 Breast - d Early Paternal Aunt 1 Breast Cancer Diabetes Paternal Aunt 2 Heart Disease Paternal Aunt 2 Diabetes Paternal Grandfather Heart Disease Paternal Grandfather Hypertension Paternal Grandfather Stroke Paternal Grandfather Not 100% [place] blood clot Paternal Grandfather Arthritis Paternal Grandmother COPD Paternal Grandmother Cancer Paternal Grandmother Ovarian Heart Paternal Grandmother Heart Disease Paternal Grandmother Also treate d by [place] Hypertension Paternal Grandmother Seizures Son Relation Status Comments Cousin Alive Father (Age 59) Maternal Aunt Maternal Grandfather Maternal Grandmother Maternal Uncle Mother Alive Other Paternal Aunt 1 Paternal Aunt 2 Paternal Grandfather (Age 60) Paternal Grandmother Alive Sister Alive Son Alive Social History Tobacco Use Types Packs/Day Years Used Date Smoking Tobacco: Never Smokeless Tobacco: Never Tobacco Cessation:Counseling Given: Not Answered Comments:I grew up in a household with second hand smoke bit have never smoked myself. 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 file Last Filed Vital Signs Vital Sign Reading Time Taken Comments Blood Pressure 122/68 01/01/2024 10:04 AM CDT Pulse 81 01/01/2024 10:04 AM CDT Temperature 36.7 C (98 F) 09/11/2022 11:14 AM CDT Respiratory Rate 18 09/11/2022 11:14 AM CDT Oxygen Saturation 99% 01/01/2024 10:04 AM CDT Inhaled Oxygen Concentration - - Weight 131.5 kg (290 lb) 01/01/2024 10:04 AM CDT Height 157.5 cm (5' 2 ) 01/01/2024 10:04 AM CDT Body Mass Index 53.04 01/01/2024 10:04 AM CDT Plan of Treatment Upcoming Encounters Date Type Department Care Team (Late st Contact Info) Description 01/06/2025 9:15 AM CDT Office Visit [facility] [address] [place], [place] [id number] Iva Jeronimo MD Three [facility]. [facility] [address] [place] [address] Health Maintenance Due Date Last Done Comments Cervical Cancer Screening Pa p Smear (Age 30 to 64) Every 3 Years 1983 Annual Physical 1986 Hepatitis C 2001 Hepatitis B Vaccines (1 of 3 - 19+ 3-dose series) 2002 Cervical Cancer Screening Pa p with HPV Testing (Age 30 to 64) Every 5 Years 2013 Cervical Cancer Screening with HPV 2013 DTaP, Tdap and Td Vaccines ( 2 - Td or Tdap) 05/17/2020 05/17/2010 Mammogram Screening 2023 PHQ-2 (Physician Mentasta) 09/12/2023 09/11/2022 COVID-19 Vaccine (2023-2 5 season) 2024 Influenza Adult (#1) 2024 PHQ-2 (Physician Mentasta) 05/05/2024 09/11/2022 HPV Vaccines Aged Out No longer eligi ble based on patient's age to complete this topic Meningococcal B Vaccine Aged Out No l onger eligible based on patient's age to complete this topic Meningococcal Vaccine Aged Out No jesse aydee eligible based on patient's age to complete this topic Pneumococcal Vaccine: Pediat rics (0 to 5 Years) and At-Risk Patients (6 to 64 Years) Aged Out No longer eligi ble based on patient's age to complete this topic RSV Immunizations Under 20 Months Aged Out No longer eligible based on patient's age to complete this topic Insurance [facility] Care Teams Barman Relationship Specialty Start Date End Date Tanya Gamino NP [address] [place] [address] PCP - General 12/29/23 Iva Jeronimo MD [address] [address] [place] Plastic Frame Inserter CARDIOVASCULAR DISEASE 10/04/15
[2024-07-07 18:40] LABS: Alanine Aminotransferase 18 U/L (6-35); Albumin Level 4.2 g/dL (3.5-5.1); Alkaline Phosphatase 139 U/L (38-126); Anion Gap 12 mmol/L (4-12); Aspartate Amino Transferase 46 U/L (14-36); Bilirubin,Total 0.6 mg/dL (0.2-1.3); Blood Urea Nitrogen 13 mg/dL (7-17); Calcium 9.6 mg/dL (8.4-10.2); Carbon Dioxide 27 mmol/L (22-30); Chloride 101 mmol/L (98-107); Estimated Glomerular Filt Rate > 60; Glucose 86 mg/dL (65-110); Potassium 4.7 mmol/L (3.4-5.0); Sodium 140 mmol/L (137-145)
== END 2024-07-07 08:28 | disposition home or self-care (01) ==
LOC: ANHBWCLAB 08:29
PROVIDERS: PCP Nurse Practitioner Adult Health; Visit Provider Nurse Practitioner Adult Health
DX: R74.8 Abnormal levels of other serum enzymes (principal)
CPT/HCPCS: 36415; 80053

== ENCOUNTER 2024-09-16 02:34 | Day surgery (SDC) | payer OTHER, SELFPAY ==
[2024-09-09 08:43] VITALS: BMI 39.4
--- OUTSIDE RECORDS SUMMARY | 2024-09-16 02:36 | XMS_ITS | Data Portability ---
Author Organization [facility]Jonathan Address [address] [place] [address] Care Team Providers Care Hat Lining Blocker Name Role Phone ASHLEY CROWELL Primary Care Provider [phone] IVETT HALE Psychiatrist Assessment No assessment recorded. Plan of Treatment Reminders Order Date Submit Date Provider Last Modified By Organization Details Last Modified Time Details Appointments None recorded. Lab TSH, ultra-sensi tive, serum 2018 019 [facility], [facility] [address], [place], [address], 9 06:10:19 CMP, serum or plasma 2018 019 RAZ DAMON, [facility], [facility] [address], [place], [address], 9 06:10:17 lipid panel, serum 2018 019 RAZ DAMON, [facility], [address], [place], [address], 9 06:10:18 CBC 2018 019 RAZ DAMON, [facility], [address], [place], [address], 9 06:10:18 HbA1c (hemoglobin A1c), blood 2018 019 RAZ DAMON, Reuben Thoumike Rodriguez, [address], [place], [address], 9 06:10:19 HbA1c (hemoglobin A1c), blood 2017 018 RAZ TRUONGRP, [address] [facility] [address], [address], [place], [address], 8 09:50:23 lipid panel, serum 2017 018 RAZ [facility], [address] [place], [place] [address]dimitri Rodriguez, [address], [place], [address], 8 09:50:25 CMP, serum or plasma 2017 018 RAZ [facility], [address] [place], [place] [address]dimitri Rodriguez, [address], [place], [address], 8 09:50:23 TSH, ultra-sensi tive, serum 2017 018 RA[facility], [address] [place], [place] [address]dimitri Michael, [address], [place], [address], 8 09:50:24 CBC 2017 018 RA[facility], [address] [place], [place] [address]dimitri Rodriguez, [address], [place], [address], 8 09:50:23 vitamin D, 25-hydroxy, total, serum 2017 018 RA[facility], [address] [place], [place] [address]dimitri Micheal, [address], [place], [address], 8 09:50:24 Referral None recorded. Procedures None recorded. Surgeries None recorded. Imaging None recorded. Medication Orders ranitidine 150 mg tablet 2016 017 [id number], [address], [place], [place], [id number], 8 09:42:53 Patient TargetsNo targets recorded. Patient Instructions Encounter Date Encounter Id Patient Instructions Last Modified By Organization Details Last Modified Time 08/27/2016 [id number] continue meds as prescribed healthy diet and exercise to loose wt f/u in 4 month nsuthan Not available 08/27/2016 10:10:01 12/27/2016 [id number] eating healthy foods: care instructions nsuthan Not available 12/27/2016 09:26:12 continue meds as prescribed healthy diet and exercise to loose wt f/u in 6 month nsuthan Not available 12/27/2016 09:39:49 07/01/2017 [id number] f/u in 1year nsuthan Not available 10:00:20 07/09/2017 [id number] Return to clinic if fever or problem worsen nsuthan Not available 07/09/2017 12:45:22 07/08/2018 [id number] A healthy lifestyle: care instructions nsuthan Not available 07/08/2018 09:27:46 f/u in 1 year nsuthan Not available 09:34:43 Reason for Referral None Reported. Results Created Date Observation Date Name Description Value Unit Range Abnormal Flag Note LastModifiedBy Organization Detail LastModifiedTime 07/30/19 17 07/30/2016 CMP, serum or plasm a glucose, serum 85 mg/dL 65-99 Not Available [facility] ([facility]) [address] [place], [address], 07/30/2016 06:13:05 07/30/19 17 07/30/2016 CMP, serum or plasm a BUN 9 mg/dL 6-20 Not Available [facility] ([facility]) [address] [place], [address], 07/30/2016 06:13:05 07/30/19 17 07/30/2016 CMP, serum or plasm a creatinine, serum 0.80 mg/dL 0.57-1 .00 Not Available [facility] ([facility]) [address] [place], [address], 07/30/2016 06:13:05 07/30/19 17 07/30/2016 CMP, serum or plasm a eGFR if nonafricn AM 97 mL/mi n/1.7 3 >59 Not Available [facility] ([facility]) [address] [place], [address], 07/30/2016 06:13:05 07/30/19 17 07/30/2016 CMP, serum or plasm a eGFR if africn AM 112 mL/mi n/1.7 3 >59 Not Available [facility] ([facility]) [address] [place], [address], 07/30/2016 06:13:05 07/30/19 17 07/30/2016 CMP, serum or plasm a BUN/creatini ne ratio 11 8-20 EFF ECTIV E AUGUST 05, 2016 BUN/C REATI NINE RATIO REFER ENCE INTER KIMBERLY WILL BE CASAREZ ING TO: AGE MALE FEMAL E 0 DAYS - 7 DAYS 9 - 25 9 - 26 8 DAYS - 30 DAYS 8 - 32 10 - 33 1 MONTH - 6 MONTH S 11 - 57 11 - 54 7 MONTH S - 1 YEAR 20 - 71 20 - 71 2 YEARS - 5 YEARS 19 - 51 19 - 49 6 YEARS - 12 YEARS 14 - 34 13 - 32 13 YEARS - 17 YEARS 10 - 22 10 - 22 18 YEARS - 59 YEARS 9 - 20 9 - 23 >59 YEARS 10 - 24 12 - 28 Not Available [facility] ([facility]) [address] [place], [address], 07/30/2016 06:13:05 07/30/19 17 07/30/2016 CMP, serum or plasm a sodium, serum 137 mmol/ L 134-14 4 Not Available [facility] ([facility]) [address] [place], [address], 07/30/2016 06:13:05 07/30/19 17 07/30/2016 CMP, serum or plasm a potassium, serum 4.6 mmol/ L 3.5-5. 2 Not Available [facility] ([facility]) [address] [place], [address], 07/30/2016 06:13:05 07/30/19 17 07/30/2016 CMP, serum or plasm a chloride, serum 96 mmol/ L 96-106 Not Available [facility] ([facility]) [address] [facility], [address], 07/30/2016 06:13:05 07/30/19 17 07/30/2016 CMP, serum or plasm a carbon dioxide, total 23 mmol/ L 18-29 Not Available [facility] ([facility]) [address] [facility], [address], 07/30/2016 06:13:05 07/30/1907/30/2016 CMP, serum or plasm a calcium, serum 9.5 mg/dL 8.7-10 .2 Not Available [facility] ([facility]) [address] [place], [address], 07/30/2016 06:13:05 07/30/1907/30/2016 CMP, serum or plasm a protein, total, serum 7.1 g/dL 6.0-8. 5 Not Available [facility] ([facility]) [address] [place], [address], 07/30/2016 06:13:05 07/30/19 17 07/30/2016 CMP, serum or plasm a albumin, serum 4.1 g/dL 3.5-5. 5 Not Available [facility] ([facility]) [address] [place], [address], 07/30/2016 06:13:05 07/30/1907/30/2016 CMP, serum or plasm a globulin, total 3.0 g/dL 1.5-4. 5 Not Available [facility] ([facility]) [address] [place], [address], 07/30/2016 06:13:05 07/30/1907/30/2016 CMP, serum or plasm a A/G ratio 1.4 1.2-2. 2 PLE ASE NOTE REFER ENCE INTER KIMBERLY Castro Not Available [facility] ([facility]) [address] [facility] [place], [address], 07/30/2016 06:13:05 07/30/19 17 07/30/2016 CMP, serum or plasm a bilirubin, total 0.3 mg/dL 0.0-1. 2 Not Available [facility] ([facility]) [address] [facility] [place], [address], 07/30/2016 06:13:05 07/30/1907/30/2016 CMP, serum or plasm a alkaline phosphatase, S 97 IU/L 39-117 Not Available [facility] ([facility]) [address] [facility] [place], [address], 07/30/2016 06:13:05 07/30/1907/30/2016 CMP, serum or plasm a AST (SGOT) 25 IU/L 0-40 Not Available [facility] ([facility]) [address] [facility] [place], [address], 07/30/2016 06:13:05 07/30/19 17 07/30/2016 CMP, serum or plasm a ALT (SGPT) 17 IU/L 0-32 Not Available [facility] ([facility]) [address] [facility] [place], [address], 07/30/2016 06:13:05 07/30/1907/30/2016 CBC WBC 8.6 x10e3 /uL 3.4-10 .8 Not Available [facility] ([facility]) [address] [facility] [place], [address], 07/30/2016 06:13:05 07/30/1907/30/2016 CBC RBC 4.71 x10e6 /uL 3.77-5 .28 Not Available [facility] ([facility]) [address] [place], [address], 07/30/2016 06:13:05 07/30/19 17 07/30/2016 CBC hemoglobin 13.7 g/dL 11.1-1 5.9 Not Available [facility] ([facility]) [address] [place], [address], 07/30/2016 06:13:05 07/30/19 17 07/30/2016 CBC hematocrit 40.0 % 34.0-4 6.6 Not Available [facility] ([facility]) [address] [place], [address], 07/30/2016 06:13:05 07/30/19 17 07/30/2016 CBC MCV 85 fL 79-97 Not Available [facility] ([facility]) [address] [place], [address], 07/30/2016 06:13:05 07/30/19 17 07/30/2016 CBC MCH 29.1 pg 26.6-3 3.0 Not Available [facility] ([facility]) [address] [place], [address], 07/30/2016 06:13:05 07/30/19 17 07/30/2016 CBC MCHC 34.3 g/dL 31.5-3 5.7 Not Available [facility] ([facility]) [address] [place], [address], 07/30/2016 06:13:05 07/30/19 17 07/30/2016 CBC RDW 13.7 % 12.3-1 5.4 Not Available [facility] ([facility]) [address] [place], [address], 07/30/2016 06:13:05 07/30/19 17 07/30/2016 CBC platelets 318 x10e3 /uL 150-37 9 Not Available [facility] ([facility]) [address] [place], [address], 07/30/2016 06:13:05 07/30/19 17 07/30/2016 CBC NRBC SITE MONITOR Not Available [facility] ([facility]) [address], [place], [address], 07/30/2016 06:13:05 07/30/19 17 07/30/2016 lipid panel , serum cholesterol, total 167 mg/dL 100-19 9 Not Available [facility] ([facility]) [address], [place], [address], 07/30/2016 06:13:06 07/30/19 17 07/30/2016 lipid panel , serum triglyceride s 217 mg/dL 0-149 above high normal Not Available [facility] ([facility]) [address] [facility], [place], [address], 07/30/2016 06:13:06 07/30/19 17 07/30/2016 lipid panel , serum HDL cholesterol 59 mg/dL >39 Not Available [facility] ([facility]) [address] [facility], [place], [address], 07/30/2016 06:13:06 07/30/19 17 07/30/2016 lipid panel , serum VLDL cholesterol mckenzie 43 mg/dL 5-40 above high normal Not Available [facility] ([facility]) [address] [facility], [place], [address], 07/30/2016 06:13:06 07/30/19 17 07/30/2016 lipid panel , serum LDL cholesterol calc 65 mg/dL 0-99 Not Available [facility] ([facility]) [address] [facility], [place], [address], 07/30/2016 06:13:06 07/30/19 17 07/30/2016 lipid panel , serum comment: SITE MONITOR Not Available [facility] ([facility]) [address] [facility], [place], [address], 07/30/2016 06:13:06 07/30/19 17 07/30/2016 TSH, ultra -sens itive , serum TSH 1.310 uIU/m L 0.450- 4.500 Not Available [facility] ([facility]) [address] [place], [address], 07/30/2016 06:13:06 07/30/19 17 07/30/2016 vitam in D, 25-hy droxy , total , serum vitamin D, 25-hydroxy 16.3 NG/mL 30.0-1 00.0 below low normal VITAM IN D DEFIC IENCY HAS BEEN DEFIN ED BY THE INSTI T[facility] OF MEDIC INE AND AN ENDOC RINE SOCIE TY PRACT ICE GUIDE LINE A LEVEL OF SERUM 25-OH VITAM IN D LESS THAN 20 NG/ML (1,2) . THE ENDOC RINE SOCIE TY WENT ON TO FUR ER DEFIN E VITAM IN D INSUF FICIE NCY A LEVEL BETWE EN 21 AND 29 NG/ML (2). 1. IOM ([facility] IT[facility] OF MEDIC INE). 2009. DIETA RY REFER ENCE INTAK ES FOR CALCI UM AND D. EMMETT TREJO DC: THE [facility] PRESS . 2. ANH [place] MF, SOFY BOWERS NC, LARISSA OFF-F BRITTANYAR I DALAL, ET AL. EVALU ATION , TREAT MENT, AND PREVE NTION OF VITAM IN D DEFIC IENCY : AN ENDOC RINE SOCIE TY CLINI MCKENZIE PRACT ICE GUIDE LINE. [facility] [place]; 96(7) :1911 -30. Not Available [facility] ([facility]) [address] [place], [address], 07/30/2016 06:13:07 07/09/19 19 07/09/2018 CMP, serum or plasm a glucose 92 mg/dL 65-99 Not Available [facility] ([facility]) [address] [place], [address], 07/09/2018 06:10:17 07/09/19 19 07/09/2018 CMP, serum or plasm a BUN 7 mg/dL 6-20 Not Available [facility] ([facility]) [address] [place], [address], 07/09/2018 06:10:17 07/09/1907/09/2018 CMP, serum or plasm a creatinine 0.79 mg/dL 0.57-1 .00 Not Available [facility] ([facility]) [address] [facility] [place], [address], 07/09/2018 06:10:17 07/09/1907/09/2018 CMP, serum or plasm a eGFR if nonafricn AM 97 mL/mi n/1.7 3 >59 Not Available [facility] ([facility]) [address] [facility] [place], [address], 07/09/2018 06:10:17 07/09/1907/09/2018 CMP, serum or plasm a eGFR if africn AM 112 mL/mi n/1.7 3 >59 Not Available [facility] ([facility]) [address] [facility], [place], [address], 07/09/2018 06:10:17 07/09/1907/09/2018 CMP, serum or plasm a BUN/creatini ne ratio 9 9-23 Not Available [facility] ([facility]) [address] [place], [address], 07/09/2018 06:10:17 07/09/1907/09/2018 CMP, serum or plasm a sodium 140 mmol/ L 134-14 4 Not Available [facility] ([facility]) [address] [place], [address], 07/09/2018 06:10:17 07/09/1907/09/2018 CMP, serum or plasm a potassium 4.7 mmol/ L 3.5-5. 2 Not Available [facility] ([facility]) [address] [facility] [place], [address], 07/09/2018 06:10:17 07/09/1907/09/2018 CMP, serum or plasm a chloride 102 mmol/ L 96-106 Not Available [facility] ([facility]) [address] [facility] [place], [address], 07/09/2018 06:10:17 07/09/1907/09/2018 CMP, serum or plasm a carbon dioxide, total 22 mmol/ L 20-29 Not Available [facility] ([facility]) [address] [facility] [place], [address], 07/09/2018 06:10:17 07/09/1907/09/2018 CMP, serum or plasm a calcium 9.3 mg/dL 8.7-10 .2 Not Available [facility] ([facility]) [address] [facility] [place], [address], 07/09/2018 06:10:17 07/09/1907/09/2018 CMP, serum or plasm a protein, total 7.1 g/dL 6.0-8. 5 Not Available [facility] ([facility]) [address] [facility] [place], [address], 07/09/2018 06:10:17 07/09/1907/09/2018 CMP, serum or plasm a albumin 4.1 g/dL 3.5-5. 5 Not Available [facility] ([facility]) [address] [facility] [place], [address], 07/09/2018 06:10:17 07/09/1907/09/2018 CMP, serum or plasm a globulin, total 3.0 g/dL 1.5-4. 5 Not Available [facility] ([facility]) [address] [facility] [place], [address], 07/09/2018 06:10:17 07/09/1907/09/2018 CMP, serum or plasm a A/G ratio 1.4 1.2-2. 2 Not Available [facility] ([facility]) [address] [place], [address], 07/09/2018 06:10:17 07/09/19 19 07/09/2018 CMP, serum or plasm a bilirubin, total 0.2 mg/dL 0.0-1. 2 Not Available [facility] ([facility]) [address] [place], [address], 07/09/2018 06:10:17 07/09/1907/09/2018 CMP, serum or plasm a alkaline phosphatase 114 IU/L 39-117 Not Available [facility] ([facility]) [address] [place], [address], 07/09/2018 06:10:17 07/09/1907/09/2018 CMP, serum or plasm a AST (SGOT) 24 IU/L 0-40 Not Available [facility] ([facility]) [address] [place], [address], 07/09/2018 06:10:17 07/09/1907/09/2018 CMP, serum or plasm a ALT (SGPT) 21 IU/L 0-32 Not Available [facility] ([facility]) [address] [place], [address], 07/09/2018 06:10:17 07/09/1907/08/2018 CBC WBC 8.9 x10e3 /uL 3.4-10 .8 Not Available [facility] ([facility]) [address] [place], [address], 07/09/2018 06:10:18 07/09/1907/08/2018 CBC RBC 4.64 x10e6 /uL 3.77-5 .28 Not Available [facility] ([facility]) [address] [place], [address], 07/09/2018 06:10:18 07/09/1907/08/2018 CBC hemoglobin 13.8 g/dL 11.1-1 5.9 Not Available [facility] ([facility]) [address] [place], [address], 07/09/2018 06:10:18 07/09/1907/08/2018 CBC hematocrit 41.2 % 34.0-4 6.6 Not Available [facility] ([facility]) [address] [place], [address], 07/09/2018 06:10:18 07/09/1907/08/2018 CBC MCV 89 fL 79-97 Not Available [facility] ([facility]) [address] [place], [address], 07/09/2018 06:10:18 07/09/1907/08/2018 CBC MCH 29.7 pg 26.6-3 3.0 Not Available [facility] ([facility]) [address] [place], [address], 07/09/2018 06:10:18 07/09/1907/08/2018 CBC MCHC 33.5 g/dL 31.5-3 5.7 Not Available [facility] ([facility]) [address] [place], [address], 07/09/2018 06:10:18 07/09/1907/08/2018 CBC RDW 13.5 % 12.3-1 5.4 Not Available [facility] ([facility]) [address] [place], [address], 07/09/2018 06:10:18 07/09/1907/08/2018 CBC platelets 363 x10e3 /uL 150-37 9 Not Available [facility] ([facility]) [address] [place], [address], 07/09/2018 06:10:18 07/09/1907/08/2018 CBC NRBC SITE MONITOR Not Available [facility] ([facility]) [address] [place], [address], 07/09/2018 06:10:18 07/09/1907/09/2018 lipid panel , serum cholesterol, total 158 mg/dL 100-19 9 Not Available [facility] ([facility]) [address] [place], [address], 07/09/2018 06:10:18 07/09/1907/09/2018 lipid panel , serum triglyceride s 230 mg/dL 0-149 above high normal Not Available [facility] ([facility]) [address] [facility], [place], [address], 07/09/2018 06:10:18 07/09/1907/09/2018 lipid panel , serum HDL cholesterol 54 mg/dL >39 Not Available [facility] ([facility]) [address] [place], [address], 07/09/2018 06:10:18 07/09/1907/09/2018 lipid panel , serum VLDL cholesterol mckenzie 46 mg/dL 5-40 above high normal Not Available [facility] ([facility]) [address] [facility], [place], [address], 07/09/2018 06:10:18 07/09/1907/09/2018 lipid panel , serum LDL cholesterol calc 58 mg/dL 0-99 Not Available [facility] ([facility]) [address] [place], [address], 07/09/2018 06:10:18 07/09/1907/09/2018 lipid panel , serum comment: SITE MONITOR Not Available [facility] ([facility]) [address] [place], [address], 07/09/2018 06:10:18 07/09/1907/08/2018 HbA1c (hemo globi n A1c), blood hemoglobin A1C 5.1 % 4.8-5. 6 Predi abete s: 5.7 - 6.4 Diabe katarina: >6.4 Glyce jody contr ol for adult s with diabe katarina: <7.0 Not Available [facility] ([facility]) 0 [facility], [place], [address], 07/09/2018 06:10:19 07/09/19 19 07/09/2018 TSH, ultra -sens itive , serum TSH 0.837 uIU/m L 0.450- 4.500 Not Available [facility] ([facility]) [address] [facility], [place], [address], 07/09/2018 06:10:19 04/22/20 18 04/18/2018 XR, chest , 2 view No observ ation record ed. [email or web address] Not Available 2017 14:29:57 06/01/19 19 05/25/2018 US, echoc ardio gram No observ ation record ed. [email or web address] Not Available 2018 09:36:16 Result Notes None recorded. Problems Name Problem SNOMED Code Status Onset Date Resolution Date Notes Provider Name and Address Organization Details Recorded Time Bipolar disorder 41473567 Active 2016 seeing psych Ashley Crowell MD Attn: Remy vieira,[address] [facility], [place], [address], [facility] 7 09:59:42 Palpitations 51251430 Active 2016 seeing cardio Ashley Crowell MD Attn: Remy vieira,[address] [facility], [place], [address], [facility] 7 10:32:45 Obesity 548001123 Active 2016 Ashley Crowell MD Attn: Remy vieira,[address] [facility], [place], [address], [facility] 7 10:39:19 Vitamin D deficiency 35122439 Active 2016 Ashley Crowell MD Attn: Remy vieira,[address] [facility], [place], [address], [facility] 7 10:13:30 Elevated blood-pressur e reading without diagnosis of hypertension 105791321 Active 2016 Ashley Crowell MD Attn: Remy vieira,[address] [facility], [place], [address], [facility] 7 09:50:49 Gastroesophag eal reflux disease without esophagitis 561238232 Active 2016 Ashley Crowell MD Attn: Remy vieira,[address] [facility], [place], [address], [facility] 7 09:55:54 Problem Notes None recorded. Procedures Surgical History Date Name Laterality Status Provider Name and Address Organization Details Recorded Time 1 Caesarean Section completed JULIA Frank [facility] 06/28/2016 10:16:40 Imaging Results Imaging Date Name Status LastModified by Organization Details LastModified Time 04/18/2018 XR, chest, 2 view completed Informa tion not available 04/22/2018 14:29:57 05/25/2018 US, echocardiogram completed Inform ation not available 06/03/2018 09:36:16 Procedure Notes None recorded. Medical Equipment None Reported. Allergies No known drug allergies Medications Name Sig Start Date Stop Date Status Note LastModified by Organization Details LastModified Time fluoxetine 40 mg capsule Take 1 capsule every day by oral route for 30 days. active psych Not Available Not Available No t Available lamotrigin e 25 mg tablet with 100 mg active psych Not Available Not Available No t Available Nortrel 1/35 (28) 1 mg-35 mcg tablet active Not Available Not Available N ot Available ranitidine 150 mg tablet Take 1 tablet twice a day by oral route. 07/01 completed not taking Not Available Not Available Not Available metoprolol succinate ER 25 mg tablet,ext ended release 24 hr Take 1 tablet every day by oral route for 30 days. active Not Available Not Available No t Available ergocalcif jenn (vitamin D2) 1,250 mcg (50,000 unit) capsule TAKE 1 CAPSULE BY MOUTH EVERY WEEK 07/08 completed not taking Not Available Not Available Not Available levofloxac in 750 mg tablet 06/28 completed Not Available Not Available Not Available fluoxetine 20 mg capsule Take 1 capsule every day by oral route. 07/08 completed taking 40 mg Not Available Not Available Not Available lamotrigin e 100 mg tablet Take 1 tablet every day by oral route for 30 days. active psych Not Available Not Available No t Available Vitals Date Recorded Body height Body mass index (BMI) Body weight Heart rate Respiratory rate Body temperature Oxygen saturation Oxygen saturation in Arterial blood by Pulse oximetry Systolic blood pressure Diastolic blood pressure Provider Name and Address Organization Details Last Updated DateTime 8 162.56 cm 46.1 kg/m2 566428. 91 g 99 /min 16 /min 98.5 [degF] 98 % 98 % 122 mm[Hg] 78 mm[Hg] [facility] 8 09:34:11 Date Recorded Body height Body mass index (BMI) Body weight Heart rate Respiratory rate Body temperature Oxygen saturation Oxygen saturation in Arterial blood by Pulse oximetry Systolic blood pressure Diastolic blood pressure Provider Name and Address Organization Details Last Updated DateTime 8 162.56 cm 46 kg/m2 886043. 4 g 94 /min 16 /min 98.7 [degF] 98 % 98 % 112 mm[Hg] 76 mm[Hg] Rhoda [facility] 8 12:22:16 Date Recorded Body height Body mass index (BMI) Body weight Heart rate Respiratory rate Body temperature Oxygen saturation Oxygen saturation in Arterial blood by Pulse oximetry Systolic blood pressure Diastolic blood pressure Provider Name and Address Organization Details Last Updated DateTime 9 162.56 cm 47.7 kg/m2 673510. 32 g 100 /min 16 /min 98.4 [degF] 95 % 95 % 110 mm[Hg] 76 mm[Hg] [facility] 9 09:23:26 Date Recorded Body height Body weight Body mass index (BMI) Heart rate Respiratory rate Body temperature Oxygen saturation Oxygen saturation in Arterial blood by Pulse oximetry Systolic blood pressure Diastolic blood pressure Provider Name and Address Organization Details Last Updated DateTime 7 162.56 cm 255876. 34 g 49 kg/m2 101 /min 12 /min 98.3 [degF] 98 % 98 % 138 mm[Hg] 90 mm[Hg] [facility] 7 09:31:17 Date Recorded Body height Body mass index (BMI) Body weight Heart rate Respiratory rate Body temperature Oxygen saturation Oxygen saturation in Arterial blood by Pulse oximetry Systolic blood pressure Diastolic blood pressure Provider Name and Address Organization Details Last Updated DateTime 7 162.56 cm 48.3 kg/m2 221693. 61 g 92 /min 16 /min 98.2 [degF] 97 % 97 % 128 mm[Hg] 82 mm[Hg] JULIA Frank [place] - [facility] 7 09:16:11 Social History Question Answer Notes LastModified by Fixed - Parking Tickets Details LastModified Time Tobacco Smoking Status Never Smoker JULIA Frank null, [place] - [facility] 06/28/2016 10:14:45 What Is Your Level Of Caffeine Consumption? Heavy Unsweet Tea & Black Coffee Information not available 07/01/2017 How Much Tobacco Do You Chew? None Information not available 06/28/2016 What Type Of Diet Are You Following? VEGETARIAN Information not available 07/08/2018 Which Illicit Or Recreational Drugs Have You Used? Denies Information not available 07/01/2017 Education 4 Year College Informatio n not available 07/01/2017 Marital Status Informatio n not available 08/27/2016 What Was The Date Of Your Most Recent Tobacco Screening? 07/08/2018 Information not available 11/26/2018 Performs Monthly Self-breast Exam? No Information not available 06/28/2016 General Stress Level Medium Med - High Information not available 07/01/2017 Sex: Unknown Functional Status Question Answer Note LastModified by Fixed - Parking Tickets Details LastModified Time What is your level of alcohol consumption? 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 Occasional yoga Information not available 06/28/2016 Mental Status None recorded. Family History Relationship Description Onset Age of this Age [id number]|2024-09-16 02:36:00|2024-09-16 02:36:00|XMS_ITS|BKG DAEMON|External Medical Summaries|[id number]|" Encounter Summary Created on: September 16, 2024 Tanya Navarrete Carole : 1985 Sex: Female Author Organization [facility] Address [address] [place] [address] Care Team Providers Care Hat Lining Blocker Name Role Phone Iva Jeronimo MD Unavailable [phone] Ashley Crowell MD Primary Care Provider [phone] Fredy Alonzo MD Primary Care Provider [phone] Tanya Gamino NP Primary Care Provider [phone] Encounter Details Date Type Department Care Team (Late Contact Info) Description 07/31/2016 Abstract [facility] AT [address] [address] rGiselda Bhakta MA Social History Tobacco Use Types [...] 9:15 AM CDT Office Visit [facility], [address] [address] Iva Jeronimo MD Three [facility]. [address] [address] documented as of this encounter Procedures Procedure [...] Results * (ABNORMAL) COMPREHENSIVE METABOLIC PANEL (07/08/2018) SODIUM S/P/B 140 POTASSIUM S/P/B 4.7 CO2 [...] Final * CBC (OUTSIDE LAB) (07/08/2018) Pathologist [facility] WBC 8.9 HGB 13.8 HCT 41.2 PLT 363 07/08/2018 us [facility] Abstract LAB-OUTSIDE/ABSTRACTED Final Result * LIPID PANEL (07/08/2018) Pathologist [facility] CHOLESTEROL 158 HDL 54 TRIGLYCERIDES 230 LDL (CALCULATED) 58 07/08/2018 us Doc [facility] Abstract LABORATORY Final Result * HEMOGLOBIN, GLYCOSYLATED (07/08/2018) [facility] HGB A1C 5.1 07/08/2018 us Doc [facility] Abstract LABORATORY Final Result * THYROID STIM HORMONE, TSH (07/08/2018) Pathologist [facility] TSH 0.837 07/08/2018 us Doc [facility] Abstract LABORATORY Final Result * (ABNORMAL) COMPREHENSIVE METABOLIC PANEL (07/29/2016) Pathologist [facility] SODIUM S/P/B 137 POTASSIUM S/P/B 4.6 CO2 [...] Final Result * CBC (OUTSIDE LAB) (07/29/2016) WBC 8.6 HGB 13.7 HCT 40 PLT 318 07/29/2016 us Doc [facility] Abstract LAB-OUTSIDE/ABSTRACTED Edite d Result - Final * LIPID PANEL (07/29/2016) CHOLESTEROL 167 HDL 59 TRIGLYCERIDES 217 LDL (CALCULATED) 65 07/29/2016 us Doc [facility] Abstract LABORATORY Final Result * THYROID STIM HORMONE, TSH (07/29/2016) TSH 1.310 07/29/2016 us Doc [facility] Abstract LABORATORY Final Result * VITAMIN D, 25 OH (07/29/2016) Pathologist [facility] VITAMIN D 25 HYDROXY S/P/B 16.3 07/29/2016 us Doc [facility] Abstract LABORATORY Final Result documented in this encounter Visit Diagnoses Not on filedocumented in this encounter Additional Health Concerns Assessment Noted Time A Body Mass Index follow-up plan has been documented for the patient 03/08/2016 1:54 AM CDT documented as of this encounter Care Teams Hat Lining Blocker Relationship Specialty Start Date End Date Ashley Crowell MD Three [facility]. [address] [address] PCP - General INTERNAL MEDICINE 05/05/16 06/16/22 Fredy Alonzo MD [address] [place] [address] PCP - General 06/17/22 12/28/23 Tanya Gamino NP [address] [place] [address] PCP - General 12/29/23 Iva Jeronimo MD [address] [place] [address] [place] Binding Folder Machine CARDIOVASCULAR DISEASE 10/04/15 documented as of this encounter "
--- OUTSIDE RECORDS SUMMARY | 2024-09-16 02:36 | XMS_ITS | Clinical Summary ---
Author Organization [facility] Address [address] [place] [address] Phone Care Team Providers Care Evp Marketing Name Role Phone Ashley Jose MD Primary Care Provider [phone] Allergies Active Allergy Reactions Criticality Noted Date [...] Comments Blood Pressure 110/76 07/04/2021 11:01 AM JET PIERCER OPERATOR Pulse 88 07/04/2021 11:01 AM JET PIERCER OPERATOR Temperature 37 C (98.6 F) 07/04/2021 11:01 AM JET PIERCER OPERATOR Respiratory Rate 15 07/04/2021 11:01 AM JET PIERCER OPERATOR Oxygen Saturation 98% 07/04/2021 11:01 AM JET PIERCER OPERATOR Inhaled Oxygen Concentration - - Weight - - Height - - Body Mass Index - - Plan of Treatment Health Maintenance Due Date Last Done Comments Hepatitis C Virus (HCV) Screening 1985 Hepatitis B Immunization (1 of 3 - 19+ 3-dose series) 2002 Influenza Immunization (#1) 2024 04/16/2021 SARS-COV-2 Immunization (2023- season) 2024 04/16/2021, 08/13/2020, 07/20/2020 Respiratory Syncytial [...] to complete this topic Insurance Care Teams Evp Marketing Relationship Specialty Start Date End Date Ashley Jose MD [address] [place] [address] PCP - General Internal Medicine 07/04/21
--- OUTSIDE RECORDS SUMMARY | 2024-09-16 02:36 | XMS_ITS | Patient Health Record ---
Author Organization [facility] Address [address] [facility] [address] [place] [address] Care Team Providers Care Industrial Roofer Name Role Phone Fredy Alonzo MD Primary Care Provider UnavailRamos Cook Unavailable [phone] Migration, Provider Unavailable Unavailable Allergies No Known Allergies Reason For Referral No Information Medications Medication SIG (Take, Route, Frequency, Duration) Notes Start Date End Date Status Losartan Potassium 25 MG Oral 09/24/2023 Active ProAir HFA 108 (90 Base) MCG/ACT Inhalation 09/24/2023 Active FLUoxetine HCl 40 MG 1 capsule Oral Once a day for 90 days 09/24/2023 Active amLODIPine Besylate 10 MG Oral 09/24/2023 Active lamoTRIgine 100 MG 1 tablet Oral Once a day for 90 days 09/24/2023 Active Metoprolol Succinate ER 25 MG Oral 09/24/2023 Active Zepbound 10 MG/0.5ML ADMINISTER 10 MG UNDER THE SKIN WEEKLY Subcutaneous for 28 Days Active MIRENA 21 MCG/24 HR (UP TO 8 YEARS) 52 MG INTRAUTERINE DEVICE *Reorder from [employer] for eRx and Interaction Alerts* 09/24/2023 Active Immunizations Vaccine Route Administration Date Status Comme nts Pfizer Biontech Covid-19 Vac cine 2nd dose Unknown 07/20/2020 Administered Pfizer Biontech Covid-19 Vac cine 2nd dose Unknown 08/13/2020 Administered Pfizer Biontech Covid-19 Vac cine 2nd dose Unknown 04/16/2021 Administered Social History Sex Assigned At : Social History Observation Description Sex Assigned At Female Vital Signs Heart Rate 90 /min 03/25/2024 Height-cm 162.56 cm 03/25/2024 Blood pressure diastolic 71 mm Hg 03/25/2024 Weight-kg 119.48 kg 03/25/2024 Height 64.00 in 03/25/2024 Blood pressure systolic 106 mm Hg 03/25/2024 Weight 263.4 lbs 03/25/2024 BMI 45.21 kg/m2 03/25/2024 Encounters Encounter Location Date Provider Diagnosis [facility] [employer] [place] [id number] [facility] [address] [address] 09/24/2023 Ramos Cabezas Bipolar disorder, in partial remission, most recent episode depressed F31.75 ; Generalized anxiety disorder F41.1 and Social phobia, generalized F40.11 [facility] [employer] [place] [address] [facility] [address] [address] 03/25/2024 Ramos Cabezas Bipolar disorder, in partial remission, most recent episode depressed F31.75 ; Generalized anxiety disorder F41.1 and Social phobia, generalized F40.11 [facility] [employer] [place] [address] [facility] [address] [address] 09/20/2023 Provider Migration [facility] [employer] [place] [address] [address] 09/21/2023 Provider Migration Assessments Encounter Date Diagnosis (ICD Code) Assessment Notes Treatment Notes Treatment Clinical Notes Section Notes 09/24/2023 Bipolar disorder, in partial remission, most recent episode depressed (ICD-10 - F31.75) 09/24/2023 Social phobia, generalized (ICD-10 - F40.11) 09/24/2023 Generalized anxiety disorder (ICD-10 - F41.1) 03/25/2024 Bipolar disorder, in partial remission, most recent episode depressed (ICD-10 - F31.75) 1. Anxiety and Social Phobia: - Patient reports some anxiety when having to be social or make phone calls for work, but overall, symptoms are well managed and not debilitating. - Patient is currently on fluoxetine 40 mg daily. Plan: - Continue fluoxetine 40 mg daily for anxiety. - Encourage the patient to continue avoiding triggers and engage in self-care activities. - Reassess in 6 months or sooner if symptoms worsen. 2. Bipolar Disorder (in remission): - Patient reports no recent depressive or manic episodes and feels stable on lamotrigine 100 mg daily. - Patient acknowledges the importance of medication adherence. Plan: - Continue lamotrigine 100 mg daily for bipolar disorder. - Monitor for any signs of mood instability and encourage the patient to report any changes. - Reassess in 6 months or sooner if symptoms change. Follow-up: - Schedule a follow-up appointment in 6 months or sooner if any concerns or changes in symptoms arise. 03/25/2024 Generalized anxiety disorder (ICD-10 - F41.1) 1. Anxiety and Social Phobia: - Patient reports some anxiety when having to be social or make phone calls for work, but overall, symptoms are well managed and not debilitating. - Patient is currently on fluoxetine 40 mg daily. Plan: - Continue fluoxetine 40 mg daily for anxiety. - Encourage the patient to continue avoiding triggers and engage in self-care activities. - Reassess in 6 months or sooner if symptoms worsen. 2. Bipolar Disorder (in remission): - Patient reports no recent depressive or manic episodes and feels stable on lamotrigine 100 mg daily. - Patient acknowledges the importance of medication adherence. Plan: - Continue lamotrigine 100 mg daily for bipolar disorder. - Monitor for any signs of mood instability and encourage the patient to report any changes. - Reassess in 6 months or sooner if symptoms change. Follow-up: - Schedule a follow-up appointment in 6 months or sooner if any concerns or changes in symptoms arise. 03/25/2024 Social phobia, generalized (ICD-10 - F40.11) 1. Anxiety and Social Phobia: - Patient reports some anxiety when having to be social or make phone calls for work, but overall, symptoms are well managed and not debilitating. - Patient is currently on fluoxetine 40 mg daily. Plan: - Continue fluoxetine 40 mg daily for anxiety. - Encourage the patient to continue avoiding triggers and engage in self-care activities. - Reassess in 6 months or sooner if symptoms worsen. 2. Bipolar Disorder (in remission): - Patient reports no recent depressive or manic episodes and feels stable on lamotrigine 100 mg daily. - Patient acknowledges the importance of medication adherence. Plan: - Continue lamotrigine 100 mg daily for bipolar disorder. - Monitor for any signs of mood instability and encourage the patient to report any changes. - Reassess in 6 months or sooner if symptoms change. Follow-up: - Schedule a follow-up appointment in 6 months or sooner if any concerns or changes in symptoms arise. Plan Of Treatment Next Appt Details Provider Name:Ramos willett, 09/23/2024 08:45:00 AM, [address] [facility] [address], [facility] [address], [place], [address], Insurance Providers Payer Name Payer Address Payer Phone Subscriber Number Group Number Insured Name Patient Relationship to Insured Coverage Start Date Coverage End Date [employer] [address] [place] [address] [id number] TELMA GOODMAN Self - patient is the insured Medical (General) History Medical History History ICD Code Problems: Bipolar affective disorder, cu rrent episode depression Bipolar disorder Generalized anxiety disorder Generalized social phobia , Surgical History Surgery Date(Month/Year) Other 05/17/2010
--- OUTSIDE RECORDS SUMMARY | 2024-09-16 02:36 | XMS_ITS | Encounter Summary ---
Author Organization [facility] Address [facility] [place] [address] Care Team Providers Care Mud Analysis Well Logging Operator Name Role Phone Iva Jeronimo MD Unavailable [phone] Ashley Jose MD Primary Care Provider [phone] Fredy Alonzo MD Primary Care Provider [phone] Tanya Gamino NP Primary Care Provider [phone] Encounter Details Date Type Department Care Team (Late st Contact Info) Description 06/13/2022 Abstract [facility] [id number] Griselda Bhakta MA Social History Tobacco Use Types Packs/Day Years Used Date Smoking Tobacco: Never Smokeless Tobacco: Never Comments:I grew up in a [facility] with second hand smoke bit have [...] Coronavirus/COVID-19? No / Unsure 06/12/2022 12:07 PM RECREATIONAL SPORTS DIRECTOR documented as of this encounter Plan of Treatment Upcoming Encounters Date Type Department Care Team (Late st Contact Info) Description 01/06/2025 9:15 AM CDT Office Visit [facility], [address] [place] [address] Iva Jeronimo MD Three [facility]. [address] [place], [place] [id number] documented as of this encounter Procedures Procedure [...] documented as of this encounter Care Teams Mud Analysis Well Logging Operator Relationship Specialty Start Date End Date Ashley Jose MD [facility]. [facility] [address] [place] [address] PCP - General INTERNAL MEDICINE 05/05/16 06/16/22 Fredy Alonzo MD [address] [place] [address] PCP - General 06/17/22 12/28/23 Tanya Gamino NP [address] [place] [address] PCP - General 12/29/23 Iva Jeronimo MD [facility]. [facility] [address] [place] [address] Brady Manager Of Planning CARDIOVASCULAR DISEASE 10/04/15 documented as of this encounter
--- OUTSIDE RECORDS SUMMARY | 2024-09-16 02:36 | XMS_ITS | Clinical Summary ---
Author Organization [facility] Address [address] [place] [address] Care Team Providers Care Swage Toolsetter Name Role Phone Iva Jeronimo MD Unavailable [phone] Tanya Gamino NP Primary Care Provider [phone] Allergies Active Allergy Reactions Criticality Noted Date [...] 08/27/2016 Vitamin D deficiency 07/30/2016 Morbid obesity 02/29/2016 Shortness of breath 12/02/2014 Sinus tachycardia 03/15/2014 Hypertriglyceridemia Palpitations Essential hypertension Immunizations Immunization Administration Dates Next Due Tdap (Generic) 05/17/2010 [...] Disease Paternal Grandmother Also treate d by [facility] Hypertension Paternal Grandmother Seizures Son Relation [...] CDT Office Visit [facility], [facility] [address] [place], [place] [phone] Iva Jeronimo MD Three [facility]. [facility] [address] [place], [place] [id number] Health Maintenance Due Date Last Done Comments [...] or Tdap) 05/17/2020 05/17/2010 Mammogram Screening 2023 COVID-19 Vaccine (2023-2 5 season) 2024 PHQ-2 (Physician [place]) 05/05/2024 09/11/2022 HPV Vaccines Aged Out No [...] 5 Years) and At-Risk Patients (6 to 49 Years) Aged Out No longer eligi ble based on patient's age to complete this topic RSV Immunizations Under 20 Months Aged Out No longer eligible based on patient's age to complete this topic Insurance [facility] Care Teams Swage Toolsetter Relationship Specialty Start Date End Date Tanya Gamino NP [address] [place] [address] PCP - General 12/29/23 Iva Jeronimo MD [facility]. [facility] [address] [place] [address] [place] Radiographer Mammographer CARDIOVASCULAR DISEASE 10/04/15
--- OUTSIDE RECORDS SUMMARY | 2024-09-16 02:36 | XMS_ITS | Encounter Summary ---
Author Organization [facility] Address [facility] [place] [address] Care Team Providers Care Meat Products Demonstrator Name Role Phone Iva Jeronimo MD Unavailable [phone] Ashley Jose MD Primary Care Provider [phone] Fredy Alonzo MD Primary Care Provider [phone] Tanya Gamino NP Primary Care Provider [phone] Encounter Details Date Type Department Care Team (Latest Contact Info) Description 03/10/2018 Abstract [facility] , Luis E Wu MD [...] Description 01/06/2025 9:15 AM CDT Office Visit [facility], [address] [place], [place] [phone] Iva Jeronimo MD Three [facility]. [address] [place], [place] [phone] documented as of this encounter Visit Diagnoses Not on filedocumented in this encounter Additional Health Concerns Assessment Noted Time A Body Mass Index follow-up plan has been documented for the patient 03/08/2016 1:54 AM CDT documented as of this encounter Care Teams Meat Products Demonstrator Relationship Specialty Start Date End Date Ashley Jose MD Three [facility]. [facility] [address] [place] [address] PCP - General INTERNAL MEDICINE 05/05/16 06/16/22 Fredy Alonzo MD [address] [place] [address] PCP - General 06/17/22 12/28/23 Tanya Gamino NP [address] [place] [address] PCP - General 12/29/23 Iva Jeronimo MD Three [facility]. [facility] [address] [place] [address] Brady Bicycle Repair Technician CARDIOVASCULAR DISEASE 10/04/15 documented as of this encounter
[2024-09-16 08:35] VITALS: BP 137/76; PULSE 79; RESP 20; TEMP 36; O2SAT 100; BMI 37.0
[2024-09-16 08:45] LABS: BEDSIDEPREGUCG Negative (Negative)
[2024-09-16] MEDS: LACTATED RINGERS 1,000 ML 150 ML IV CONT (08:52)
--- NOTE | 2024-09-16 09:27 | WPDANESEPPF ---
Anes - Initial Pre Proc Eval Procedure: Operation Date: 09/16/24 09:30 Proposed Procedures p Colonoscopy - Clinton Freire MD Date/Time: 09/16/24 09:27 Surgeon: Clinton Freire MD Pre Op Diagnosis: family hx of cancer Patient Data Age: 39 Gender: F Height: 1.63 m Weight: 98 kg Last Vital Signs Temp 36.0 C L 09/16/24 08:35 Pulse 79 09/16/24 08:35 Resp 20 09/16/24 08:35 BP 137/76 09/16/24 08:35 Pulse Ox 100 09/16/24 08:35 O2 Del Method Room Air 09/16/24 08:35 Allergies Allergy/AdvReac Type Severity Reaction Status Date / Time topiramate Allergy Intermediate HIVES Verified 09/16/24 08:31 Home Medications Medication Instructions Recorded Confirmed Type Zyrtec 1 tab-cap PO DAILY 05/23/22 09/16/24 History albuterol sulfate 90 mcg/actuation 1 inh inhalation Q4H PRN shortness 05/23/22 09/09/24 Rx aerosol inhaler of breath or wheezing #8.5 grams fluoxetine 40 mg capsule 40 mg PO DAILY 05/23/22 09/16/24 History lamotrigine 100 mg tablet 100 mg PO HS 05/23/22 09/16/24 History tirzepatide (weight loss) 15 See Rx Instructions .Route 05/24/24 09/09/24 Rx mg/0.5 mL subcutaneous pen .COMPLEX #2 mL injector (Zepbound) metoprolol succinate 25 mg 12.5 mg PO HS 07/07/24 09/16/24 History tablet,extended release 24 hr amlodipine 10 mg tablet See Rx Instructions .Route 07/13/24 09/16/24 Rx .COMPLEX #90 tabs losartan 25 mg tablet See Rx Instructions .Route 07/13/24 09/16/24 Rx .COMPLEX #90 tabs omeprazole 40 mg capsule,delayed See Rx Instructions .Route 08/17/24 09/16/24 Rx release .COMPLEX #90 caps Laboratory Tests 09/16/24 08:35 POC Urine HCG, Qual Negative (Negative) Patient hx anesthesia problems: none Family hx anesthesia problems: none Results Review: All pre-operative results and documents have been reviewed as part of the pre-operative evaluation. [facility] Past Medical History Medical History Bipolar disorder GERD (gastroesophageal reflux disease) Asthma Hypertension Tachycardia IBS (irritable bowel syndrome) Anxiety Surgical History Surgical History H/O section Family History Family History Grandparent Family history of heart disease in male family member before age 55 Diabetes mellitus Mother Family history of thyroid disease Father Family history of bipolar disorder Cerebrovascular accident Family history of diabetes mellitus in first degree relative Other Family history of cardiovascular disease Family history of malignant neoplasm of breast Hypertension Social History Social History Smoking status: Never smoker Alcohol intake: current Lack of Transportation: No Lack of Food: Never True Current Housing: I Have Housing Concerned About Future Housing: No Difficulty Paying Gas/Electric Bills: No Difficulty Paying for Meds: No Currently Unemployed: No Education: Bachelor's Degree Difficulty w/ Childcare or Family Care: No Living arrangements: 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 Gender identity (if verbalized by the patient): Female Spiritual care concerns: No Agree to blood products: Yes Anes - Eval Final PreProcedure Day of Procedure 09/16/24 09:27 Patient weight: obese Heart: regular rate and rhythm Lungs: clear to auscultation Airway: Mallampati scale class II Neurological: alert and oriented Last oral intake: >/= 8 hours ASA classification: III Emergent: no Anesthetic plan: proceed Anesthesia type and monitoring: general GIVS and standard monitoring Results Review: All pre-operative results and documents have been reviewed as part of the pre-operative evaluation. Informed Consent: The patient's anesthetic plan and its attendant risks and benefits were discussed with the patient/family/POA. Questions were solicited and answers provided to the satisfaction of the patient/family/POA.
--- NOTE | 2024-09-16 09:32 | PM.IMHP ---
H&P: HPI History of Present Illness Date/Time: 09/16/24 09:32 Chief Complaint: Family history of colon polyps Narrative: the patient's mother, brother and sister had colon polyps. She is here for her 1st screening colonoscopy. Asymptomatic from a GI standpoint. Review of Systems Review of Systems: All systems reviewed & are unremarkable except as noted in HPI and below PMFSH Past Medical History Medical History Bipolar disorder GERD (gastroesophageal reflux disease) Asthma Hypertension Tachycardia IBS (irritable bowel syndrome) Anxiety Surgical History Surgical History H/O section Family History Family History Grandparent Family history of heart disease in male family member before age 55 Diabetes mellitus Mother Family history of thyroid disease Father Family history of bipolar disorder Cerebrovascular accident Family history of diabetes mellitus in first degree relative Other Family history of cardiovascular disease Family history of malignant neoplasm of breast Hypertension Social History Social History Smoking status: Never smoker Alcohol intake: current Lack of Transportation: No Lack of Food: Never True Current Housing: I Have Housing Concerned About Future Housing: No Difficulty Paying Gas/Electric Bills: No Difficulty Paying for Meds: No Currently Unemployed: No Education: Bachelor's Degree Difficulty w/ Childcare or Family Care: No Living arrangements: 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 Gender identity (if verbalized by the patient): Female Spiritual care concerns: No Agree to blood products: Yes Meds Home Medications and Allergies Home Medications Medication Instructions Recorded Confirmed Type Zyrtec 1 tab-cap PO DAILY 05/23/22 09/16/24 History albuterol sulfate 90 mcg/actuation 1 inh inhalation Q4H PRN shortness 05/23/22 09/09/24 Rx aerosol inhaler of breath or wheezing #8.5 grams fluoxetine 40 mg capsule 40 mg PO DAILY 05/23/22 09/16/24 History lamotrigine 100 mg tablet 100 mg PO HS 05/23/22 09/16/24 History tirzepatide (weight loss) 15 See Rx Instructions .Route 05/24/24 09/09/24 Rx mg/0.5 mL subcutaneous pen .COMPLEX #2 mL injector (Zepbound) metoprolol succinate 25 mg 12.5 mg PO HS 07/07/24 09/16/24 History tablet,extended release 24 hr amlodipine 10 mg tablet See Rx Instructions .Route 07/13/24 09/16/24 Rx .COMPLEX #90 tabs losartan 25 mg tablet See Rx Instructions .Route 07/13/24 09/16/24 Rx .COMPLEX #90 tabs omeprazole 40 mg capsule,delayed See Rx Instructions .Route 08/17/24 09/16/24 Rx release .COMPLEX #90 caps Allergies Allergy/AdvReac Type Severity Reaction Status Date / Time topiramate Allergy Intermediate HIVES Verified 09/16/24 08:31 Vital Signs Vital Signs - 24 hr 09/16/24 08:35 Temperature 96.8 F L Pulse Rate 79 Respiratory Rate 20 Blood Pressure 137/76 Pulse Oximetry 100 Oxygen Delivery Room Air Exam Const: General: cooperative and healthy appearing Resp: Effort & Inspection: normal respiratory effort and able to speak in complete sentences Auscultation: clear to auscultation bilaterally Cardio: Rate: regular rate Rhythm: regular rhythm GI: Inspection: normal to inspection GI Palp: No No hepatosplenomegaly present Auscultation: normal bowel sounds Rectal Exam: deferred Skin: General skin exam: normal color Psych: Appearance: grossly normal Mental Status: mental status grossly normal Assessment and Plan Assessment and plan (1) Family history of polyps in the colon: Code(s): Z83.719 - Family history of colon polyps, unspecified Status: Acute Assessment and Plan: The patient is deemed a good candidate for the procedure. Consent signed. Will proceed.
[2024-09-16 09:52] VITALS: BP 77/44; PULSE 76; RESP 16; O2SAT 100
[2024-09-16 10:02] VITALS: BP 100/57; PULSE 74; RESP 25; O2SAT 100
[2024-09-16 10:12] VITALS: BP 104/53; PULSE 64; RESP 22; O2SAT 100
== END 2024-09-16 10:22 | disposition home or self-care (01) ==
PROVIDERS: Anesthesiology; PCP Nurse Practitioner Adult Health; Referring Provider Nurse Practitioner Adult Health; Visit Provider Internal Medicine Gastroenterology
PROC: 0DJD8ZZ Inspection of Lower Intestinal Tract, Via Natural or Artificial Opening Endoscopic (ICD-10-PCS; CPT 45378; principal; 2024-09-16 09:30)
DX: Z12.11 Encounter for screening for malignant neoplasm of colon (principal); K64.4 Residual hemorrhoidal skin tags; I10 Essential (primary) hypertension; J45.909 Unspecified asthma, uncomplicated; K21.9 Gastro-esophageal reflux disease without esophagitis; F41.9 Anxiety disorder, unspecified; K58.9 Irritable bowel syndrome, unspecified; F31.9 Bipolar disorder, unspecified; R00.0 Tachycardia, unspecified; E66.9 Obesity, unspecified; Z68.37 Body mass index [BMI] 37.0-37.9, adult; Z79.51 Long term (current) use of inhaled steroids; Z79.85 Long-term (current) use of injectable non-insulin antidiabetic drugs; Z98.890 Other specified postprocedural states; Z83.719 Family history of colon polyps, unspecified; Z80.3 Family history of malignant neoplasm of breast; Z80.0 Family history of malignant neoplasm of digestive organs; Z82.49 Family history of ischemic heart disease and other diseases of the circulatory system
CPT/HCPCS: 45378; J2003; J2704; J7120

== ENCOUNTER 2025-01-11 08:37 | Outpatient (CLI) | payer OTHER, SELFPAY ==
--- OUTSIDE RECORDS SUMMARY | 2025-01-11 09:08 | XMS_ITS | Clinical Summary ---
Author Organization [facility] Address [address] [place] [address] Care Team Providers Care Sales Planning Analyst Name Role Phone Coty Jeronimo MD Unavailable [phone] Tanya Gamino NP Primary Care Provider [phone] Allergies Active Allergy Reactions Criticality Noted Date Comments Topiramate Shortness of Breath High 02/29/2016 Medications lamoTRIgine (LAMICTAL) 100 MG tablet Take 1 tablet (100 mg total) by mouth daily. 03/13/20 17 Active fluoxetine 40 MG capsule Take 1 capsule (40 mg total) by mouth daily. 04/08/20 18 Active cetirizine (ZYRTEC) 10 MG tablet 04/16/20 21 Active albuterol sulfate HFA 108 (90 Base) MCG/ACT inhaler INHALE 1 PUFF BY MOUTH EVERY 4 HOURS NEEDED FOR SHORTNESS OF BREATH OR WHEEZING 05/23/19 23 Active azelastine (ASTELIN) 0.1 % nasal sprayIndicatio ns:Allergic rhinitis, unspecified seasonality, unspecified trigger 2 sprays by Nasal route nightly at bedtime. Use in each nostril as directed 30 mL 11 09/12/19 23 Active losartan (COZAAR) 25 MG tablet Take 1 tablet (25 mg total) by mouth daily. Active omeprazole (PRILOSEC) 40 MG capsule Take 1 capsule (40 mg total) by mouth daily. 11/11/19 24 Active levonorgestrel (MIRENA, 52 MG,) 20 MCG/DAY IUD 1 Intra Uterine Device by Intrauterine route once. Active metoprolol succinate ER (TOPROL-XL) 25 MG 24 hr tablet TAKE 1 TABLET(25 MG) BY MOUTH DAILY 90 tablet 2 04/12/20 24 Active tirzepatide (ZEPBOUND) 15 MG/0.5ML injection Inject 15 mg into the skin once a week. Active amLODIPine (NORVASC) 5 MG tablet Take 1 tablet (5 mg total) by mouth daily. NEW DOSE 01/06/2025 OV 30 tablet 3 01/07/20 25 Active amLODIPine (NORVASC) 10 MG tablet Take 1 tablet (10 mg total) by mouth daily. 03/18/20 23 2024 Discontinued(R eorder) ZEPBOUND 2.5 MG/0.5ML injection Inject 2.5 mg into the skin once a week. 12/13/19 24 2024 Discontinued Active Problems Problem Noted Date Diagnosed Date Fatty liver disease, nonalcoholic 11/08/2023 Primary hypertension 08/27/2016 Vitamin D deficiency 07/30/2016 Morbid obesity 02/29/2016 Shortness of breath 12/02/2014 Sinus tachycardia 03/15/2014 Hypertriglyceridemia Palpitations Essential hypertension Encounters Date Type Department Care Team Description 01/06/2025 9:15 AM CDT Office Visit [address] [address] Coty Jeronimo MD Hypertension; Lipids (Annual follow up) 01/06/2025 Travel from Last 3 Months Immunizations Immunization Administration Dates Next Due PFIZER COVID-19 (ORIGINAL FO RMULATION, PURPLE CAP) mRNA, LNP-S, PF, 30 MCG/0.3 ML DOSE 04/16/2021,08/13/2020,07/20/2020 Tdap (Generic) 05/17/2010 Family History Medical History [...] coronary artery disease, stroke, diabetes, dyslipidemia/hyperlipidemia. Other Asthma Paternal Aunt 1 Cancer Paternal Aunt 1 Breast - d Early Paternal Aunt 1 Breast Cancer COPD Paternal Aunt 2 Cancer Paternal Aunt 2 Lung Diabetes Paternal Aunt 2 Heart Disease Paternal Aunt 2 Diabetes Paternal Grandfather Heart Disease Paternal Grandfather Hypertension Paternal Grandfather Stroke Paternal Grandfather Not 100% clemens re blood clot Paternal Grandfather Arthritis Paternal Grandmother COPD Paternal Grandmother Cancer Paternal Grandmother Breast & Ov giovany Heart Paternal Grandmother Heart Disease Paternal Grandmother Also treate d by [place] Cardiovascular Hypertension Paternal Grandmother Cancer Sister Invasive Ductal Carcinoma Seizures Son Relation Status Comments Cousin Alive Father (Age 59) Maternal Aunt Maternal Grandfather Maternal Grandmother Maternal Uncle Mother Alive Other Paternal Aunt 1 Paternal Aunt 2 Paternal Grandfather (Age 60) Paternal Grandmother Sister Alive Son Alive Social History Tobacco [...] Sign Reading Time Taken Comments Blood Pressure 92/54 01/06/2025 9:36 AM CDT Pulse 75 01/06/2025 9:06 AM CDT Temperature 36.7 C (98 F) 09/11/2022 11:14 AM CDT Respiratory Rate 18 09/11/2022 11:14 AM CDT Oxygen Saturation 100% 01/06/2025 9:06 AM CDT Inhaled Oxygen Concentration - - Weight 94.3 kg (208 lb) 01/06/2025 9:06 AM CDT Height 157.5 cm (5' 2) 01/06/2025 9:06 AM CDT Body Mass Index 38.04 01/06/2025 9:06 AM CDT Plan of Treatment Upcoming Encounters Date Type Department Care Team (Late st Contact Info) Description 01/12/2026 10:15 AM CDT [facility] Visit [facility] [address] [facility] [address], [address] [place] [address] Anila Winter APRN [address] [place] [address] Health Maintenance Due Date Last Done Comments Cervical Cancer Screening Pa p Smear (Age 30 to 64) Every 3 Years 1983 Annual Physical 1986 Hepatitis C 2001 Hepatitis B Vaccines (1 of 3 - 19+ 3-dose series) 2002 HPV Vaccines (1 - 3-dose SCD M series) 2010 Cervical Cancer Screening Pa p with HPV Testing (Age 30 to 64) Every 5 Years 2013 Cervical Cancer Screening wi th HPV 2013 DTaP, Tdap and Td Vaccines ( 2 - Td or Tdap) 05/17/2020 05/17/2010 Mammogram Screening 2023 PHQ-2 (Physician [place]) 05/05/2024 COVID-19 Vaccine (4 - 2024-2 6 season) 2025 04/16/2021, 08/13/2020, 07/20/2020 Meningococcal B Vaccine Aged Out No l onger eligible based on patient's age to complete this topic Meningococcal Vaccine Aged Out No jesse aydee eligible based on patient's age to complete this topic Pneumococcal Vaccine: Pediatrics (0 to 5 Years) and At-Risk Patients (6 to 49 Years) Aged Out No longer eligible b ased on patient's age to complete this topic RSV Immunizations Under 20 Months Aged Out No longer eligible b ased on patient's age to complete this topic Procedures Procedure Name Priority Date/Time Associated Diagnosis Comments ELECTROCARDIOGRAM (NON MIDMARK ACQUIRED) Routine 01/06/2025 9:10 AM CDT Essential hypertension from Last 3 Months Results * ELECTROCARDIOGRAM (01/06/2025 9:10 AM CDT) 01/06/2025 9:10 AM CDT Narrative DEEPAK SNYDER - 01/06/2025 9:27 AM CDT [facility] Test Date: 2025-01-06 Pat Name: TELMA NAVARRETE Department: 112 Room: Gender: Female Client Services Specialist: : 1985 Requested By: COTY JERONIMO Order Number: [id number] Reading MD: Coty Jeronimo Measurements Intervals [place] Rate: 75 P: 63 TX: 165 QRS: 44 QRSD: 97 T: 51 QT: 388 QTc: 434 Interpretive Statements SINUS RHYTHM WITH SINUS ARRHYTHMIA LOW QRS VOLTAGE IN PRECORDIAL LEADS Since prior tracing, no significant change Procedure Note Coty Jeronimo MD - 01/06/20[facility]: [facility] Pat Name: TELMA NAVARRETE Department: 112 Room: Gender: Female Client Services Specialist: : 1985 Requested By: COTY JERONIMO Order Number: [id number] Reading MD: Coty Jeronimo Measurements Intervals [place] Rate: 75 P: 63 TX: 165 QRS: 44 QRSD: 97 T: 51 QT: 388 QTc: 434 Interpretive Statements SINUS RHYTHM WITH SINUS ARRHYTHMIA LOW QRS VOLTAGE IN PRECORDIAL LEADS Since prior tracing, no significant change us Coty Jeronimo MD PROCEDURES-ORDERABLE NO CHARGE Final Result Performing Organization Address City/State/[facility] Co de Phone Number DEEPAK SNYDER from Last 3 Months Insurance [employer] Care Teams Sales Planning Analyst Relationship Specialty Start Date End Date Tanya Gamino NP [address] [place] [address] PCP - General 12/29/23 Coty Jeronimo MD [facility]. [facility] [address] [place] [address] Brady Bag Checker CARDIOVASCULAR DISEASE 10/04/15
--- OUTSIDE RECORDS SUMMARY | 2025-01-11 09:08 | XMS_ITS | Encounter Summary ---
Author Organization [facility] Address [facility] [place] [address] Care Team Providers Care Mine Boss Name Role Phone Iva Jeronimo MD Unavailable [phone] Ashley Jose MD Primary Care Provider [phone] Fredy Alonzo MD Primary Care Provider [phone] Tanya Gamino NP Primary Care Provider [phone] Encounter Details Date Type Department Care Team (Late st Contact Info) Description 06/13/2022 Abstract [facility] [id number] Griselda Bhakta MA Social History Tobacco Use Types Packs/Day Years Used Date Smoking Tobacco: Never Smokeless Tobacco: Never Comments:[place] [facility] with second hand smoke bit have never [...] Coronavirus/COVID-19? 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 [place], [place] [id number] documented as of this encounter Procedures Procedure [...] documented as of this encounter Care Teams Mine Boss Relationship Specialty Start Date End Date Ashley Jose MD [facility]. [facility] [address] [place] [address] PCP - General INTERNAL MEDICINE 05/05/16 06/16/22 Fredy Alonzo MD [address] [place] [address] PCP - General 06/17/22 12/28/23 Tanya Gamino NP [address] [place] [address] PCP - General 12/29/23 Iva Jeronimo MD Three [facility]. [facility] [address] [place] [address] Brady Bottler Helper CARDIOVASCULAR DISEASE 10/04/15 documented as of this encounter
--- OUTSIDE RECORDS SUMMARY | 2025-01-11 09:08 | XMS_ITS | Encounter Summary ---
Author Organization [facility] Address [facility] [place] [address] Care Team Providers Care Truck Driver Flatbed Name Role Phone Iva Jeronimo MD Unavailable [phone] Ashley Jose MD Primary Care Provider [phone] Fredy Alonzo MD Primary Care Provider [phone] Tanya Gamino NP Primary Care Provider [phone] Encounter Details Date Type Department Care Team (Late st Contact Info) Description 07/31/2016 Abstract [facility] [address] [address] Griselda Bhakta MA Social History [...] AM CDT Office [facility] [facility], [address] [address] Anila Winter APRN [facility] [address] [facility] [place] [address] documented as of this encounter Procedures Procedure Name Priority Date/Time Associated Diagnosis Comments COMPREHENSIVE METABOLIC PANEL Routine 07/07/2024 CBC, MANUAL DIFF Routine 02/02/2024 CBC (OUTSIDE LAB) Routine 07/08/2018 COMPREHENSIVE METABOLIC PANEL Routine 07/08/2018 LIPID PANEL Routine 07/08/2018 HEMOGLOBIN, GLYCOSYLATED Routine 07/08/2018 THYROID STIM HORMONE TSH Routine 07/08/2018 CBC (OUTSIDE LAB) Routine 07/29/2016 COMPREHENSIVE METABOLIC PANEL Routine 07/29/2016 LIPID PANEL Routine 07/29/2016 THYROID STIM HORMONE TSH Routine 07/29/2016 VITAMIN D, 25 OH Routine 07/29/2016 documented in this encounter Results * COMPREHENSIVE METABOLIC PANEL (07/07/2024) SODIUM S/P/B 140 GLUCOSE 86 mg/dL AST 46 BUN 13 CREATININE S/P/B 0.97 0.5 - 1.0 CALCIUM S/P/B 9.6 POTASSIUM S/P/B 4.7 CHLORIDE S/P/B 101 ALT 18 GFR ESTIMATE >60 us Default History Genericprovider LABORATORY Final Result * CBC, MANUAL DIFF (02/02/2024) WBC 6.8 HGB 13.9 HCT 44.3 PLT 337 us Default History Genericprovider LABORATORY Final Result * (ABNORMAL) COMPREHENSIVE METABOLIC PANEL (07/08/2018) SODIUM [...] Final * CBC (OUTSIDE LAB) (07/08/2018) Pathologist [facility] WBC 8.9 HGB 13.8 HCT 41.2 PLT 363 07/08/2018 us Doc [facility] Abstract LAB-OUTSIDE/ABSTRACTED Final Result * LIPID PANEL (07/08/2018) Pathologist [facility] CHOLESTEROL 158 HDL 54 TRIGLYCERIDES 230 LDL (CALCULATED) 58 07/08/2018 us Doc [facility] Abstract LABORATORY Final Result * HEMOGLOBIN, GLYCOSYLATED (07/08/2018) Pathologist [facility] HGB A1C 5.1 07/08/2018 us Doc [facility] Abstract LABORATORY Final Result * THYROID STIM HORMONE, TSH (07/08/2018) Pathologist [facility] TSH 0.837 07/08/2018 us Doc [facility] Abstract LABORATORY Final Result * (ABNORMAL) COMPREHENSIVE METABOLIC PANEL (07/29/2016) Pathologist [facility] SODIUM S/P/B 137 POTASSIUM S/P/B 4.6 CO2 [...] Result * CBC (OUTSIDE LAB) (07/29/2016) Pathologist [facility] WBC 8.6 HGB 13.7 HCT 40 PLT 318 07/29/2016 us Doc [facility] Abstract LAB-OUTSIDE/ABSTRACTED Edite d Result - Final * LIPID PANEL (07/29/2016) Pathologist [facility] CHOLESTEROL 167 HDL 59 TRIGLYCERIDES 217 LDL (CALCULATED) 65 07/29/2016 us Doc [facility] Abstract LABORATORY Final Result * THYROID STIM HORMONE, TSH (07/29/2016) Pathologist [facility] TSH 1.310 07/29/2016 us Doc [facility] Abstract LABORATORY Final Result * VITAMIN D, 25 OH (07/29/2016) Pathologist [facility] VITAMIN D 25 HYDROXY S/P/B 16.3 07/29/2016 us Doc [facility] Abstract LABORATORY Final Result documented in this encounter Visit Diagnoses Not on filedocumented in this encounter Additional Health Concerns Assessment Noted Time A Body Mass Index follow-up plan has been documented for the patient 03/08/2016 1:54 AM CDT documented as of this encounter Care Teams Truck Driver Flatbed Relationship Specialty Start Date End Date Ashley Jose MD [facility]. [address] [address] PCP - General INTERNAL MEDICINE 05/05/16 06/16/22 Fredy Alonzo MD [address] [place] [address] PCP - General 06/17/22 12/28/23 Tanya Gamino NP [address] [place] [address] PCP - General 12/29/23 Iva Jeronimo MD [facility]. [address] [address] Brady Organic Chemist CARDIOVASCULAR DISEASE 10/04/15 documented as of this encounter
--- OUTSIDE RECORDS SUMMARY | 2025-01-11 09:08 | XMS_ITS | Encounter Summary ---
Author Organization [facility] Address [facility] [place] [address] Care Team Providers Care Professor Of Literature Name Role Phone Iva Jeronimo MD Unavailable [phone] Ashley Jose MD Primary Care Provider [phone] Fredy Alonzo MD Primary Care Provider [phone] Tanya Gamino NP Primary Care Provider [phone] Encounter Details Date Type Department Care Team (Latest Contact Info) Description 03/10/2018 Abstract [facility] , Luis E Wu [...] Description 01/12/2026 10:15 AM CDT Office Visit [facility] [facility] THREE [facility], [address] [place], [place] [phone] Anila Winter APRN Three [facility]. [address] [place], [place] [id number] documented as of this encounter Visit Diagnoses Not on filedocumented in this encounter Additional Health Concerns Assessment Noted Time A Body Mass Index follow-up plan has been documented for the patient 03/08/2016 1:54 AM CDT documented as of this encounter Care Teams Professor Of Literature Relationship Specialty Start Date End Date Ashley Jose MD Three [facility]. [facility] [address] [place] [address] PCP - General INTERNAL MEDICINE 05/05/16 06/16/22 Fredy Alonzo MD [address] [place] [address] PCP - General 06/17/22 12/28/23 Tanya Gamino NP [address] [place] [address] PCP - General 12/29/23 Iva Jeronimo MD Three [facility]. [facility] [address] [place] [address] Brady Lunch Cook CARDIOVASCULAR DISEASE 10/04/15 documented as of this encounter
--- OUTSIDE RECORDS SUMMARY | 2025-01-11 09:08 | XMS_ITS | Clinical Summary ---
Author Organization [facility] Address [address] [facility] [place] [address] Phone Care Team Providers Care Machine Taper Name Role Phone Ashlye Jose MD Primary Care Provider [phone] Allergies Active Allergy Reactions Criticality Noted Date [...] Comments Blood Pressure 110/76 07/04/2021 11:01 AM AIRDROP SYSTEMS TECHNICIAN Pulse 88 07/04/2021 11:01 AM AIRDROP SYSTEMS TECHNICIAN Temperature 37 C (98.6 F) 07/04/2021 11:01 AM AIRDROP SYSTEMS TECHNICIAN Respiratory Rate 15 07/04/2021 11:01 AM AIRDROP SYSTEMS TECHNICIAN Oxygen Saturation 98% 07/04/2021 11:01 AM AIRDROP SYSTEMS TECHNICIAN Inhaled Oxygen Concentration - - Weight - - Height - - Body Mass Index - - Plan of Treatment Health Maintenance Due Date Last Done Comments Hepatitis C Virus (HCV) Screening 1985 Hepatitis B Immunization (1 of 3 - 19+ 3-dose series) 2002 Pap Smear 2004 Human Papillomavirus (HPV) Immunization (1 - 3-dose SCDM series) 2010 Cervical Cancer Screening (CCS) 2013 HPV/Cotest 2013 Influenza Immunization (#1) 2025 04/16/2021 SARS-COV-2 Immunization ( season) 2025 04/16/2021, 08/13/2020, 07/20/2020 Respiratory Syncytial Virus (RSV) [...] to complete this topic Insurance Care Teams Machine Taper Relationship Specialty Start Date End Date Ashley Jose MD [address] [place] [address] PCP - General Internal Medicine 07/04/21
[2025-01-11 18:23] LABS: Hematocrit 42.4 % (37.0-47.0); Hemoglobin 13.8 g/dL (12.0-15.0); Immature Granulocyte Percent A 0.8 % (0-0.5); Lymphocytes Absolute Auto 1.26 K/mm3 (0.9-3.2); Mean Corpuscular HGB Conc 32.5 g/dl (32-36); Mean Corpuscular Hemoglobin 30.3 pg (26-34); Mean Corpuscular Volume 93.2 fl (80-100); Nucleated Red Blood Cells Absolute Auto 0.000 K/mm3 (0.0-0.012); Nucleated Red Blood Cells Perc 0.0 % (0.0-0.2); Platelet Count Result 288 k/mm3 (150-375); Red Blood Count 4.55 M/mm3 (4.2-5.4); White Blood Count 6.4 K/mm3 (4.5-10.0)
[2025-01-11 19:02] LABS: Alanine Aminotransferase 20 U/L (6-35); Albumin Level 4.3 g/dL (3.5-5.1); Alkaline Phosphatase 114 U/L (38-126); Anion Gap 9 mmol/L (4-12); Aspartate Amino Transferase 48 U/L (14-36); Bilirubin,Total 0.8 mg/dL (0.2-1.3); Blood Urea Nitrogen 11 mg/dL (7-17); Calcium 9.1 mg/dL (8.4-10.2); Carbon Dioxide 27 mmol/L (22-30); Chloride 99 mmol/L (98-107); Cholesterol 164 mg/dL (0-200); Estimated Glomerular Filt Rate > 60; Glucose 77 mg/dL (65-110); HDL Direct 52 mg/dL; Magnesium 2.2 mg/dL (1.6-2.3); Potassium 4.4 mmol/L (3.4-5.0); Sodium 135 mmol/L (137-145); Total Protein 7.7 g/dL (6.3-8.2); Triglycerides 74 mg/dL (<150)
[2025-01-11 19:38] LABS: Thyroid Stimulating Hormone 0.645 uIU/mL (0.465-4.680)
[2025-01-11 19:56] LABS: Vitamin B12 314.0 pg/mL (239-931)
== END 2025-01-11 08:38 | disposition home or self-care (01) ==
LOC: ANHBWCLAB 08:39
PROVIDERS: PCP Nurse Practitioner Adult Health; Visit Provider Nurse Practitioner Adult Health
DX: Z00.00 Encounter for general adult medical examination without abnormal findings (principal); Z51.81 Encounter for therapeutic drug level monitoring; Z12.31 Encounter for screening mammogram for malignant neoplasm of breast; I10 Essential (primary) hypertension
CPT/HCPCS: 36415; 80053; 80061; 82607; 83735; 84443; 85025

== ENCOUNTER 2025-01-19 12:26 | Outpatient (CLI) | payer OTHER, SELFPAY ==
--- NOTE | ~2025-01-19 | MM_ITS ---
EXAMINATION: MM screening jasmin BI w betzy HISTORY: Screening TECHNIQUE: Craniocaudal and mediolateral oblique 3-D tomosynthesis images were obtained and synthetic 2-D images were generated. CAD analysis was submitted and interpreted. COMPARISON: No prior mammogram is available for comparison at this institution. BREAST PARENCHYMAL COMPOSITION: There are scattered areas of fibroglandular density. FINDINGS: There is no evidence of suspicious mass, calcification, or architectural distortion in either breast to suggest malignancy. There has been no significant interval change. IMPRESSION: 1. No mammographic evidence of malignancy. Recommend routine screening mammography in one year. BI-RADS Category 1: Negative Reviewed, dictated and finalized at location Q. IMPRESSION: 1. No mammographic evidence of malignancy. Recommend routine screening mammogra phy in one year. BI-RADS Category 1: Negative
--- OUTSIDE RECORDS SUMMARY | 2025-01-19 12:36 | XMS_ITS | Clinical Summary ---
Author Organization [facility] Address [address] [place] [address] Care Team Providers Care Fan Installer Name Role Phone Coty Jeronimo MD Unavailable [phone] Tanya Gamino NP Primary Care Provider [phone] Allergies Active Allergy Reactions Criticality Noted Date [...] Description 01/06/2025 9:15 AM CDT Office Visit [address] [address] Coty Jeronimo MD Hypertension; Lipids (Annual follow [...] Disease Paternal Grandmother Also treate d by [place] [facility] Hypertension Paternal Grandmother Cancer Sister Invasive [...] CDT Office Visit [facility] [facility] [address] [facility], [address] [place] [address] Anila Winter APRN [address] [place] [address] Health Maintenance Due Date Last Done Comments [...] 05/17/2020 05/17/2010 Mammogram Screening 2023 PHQ-2 (Physician [place]) 05/05/2024 COVID-19 Vaccine (4 - 2024-2 6 [...] - 01/06/2025 9:27 AM CDT [facility] Test Date: 2025-01-06 Pat Name: TELMA NAVARRETE Department: 112 Room: Gender: Female Clinical Laboratory Science Professor: : 1985 Requested By: COTY JERONIMO Order Number: [id number] Reading MD: Coty Jeronimo Measurements Intervals [place] Rate: 75 P: 63 TX: 165 QRS: 44 QRSD: 97 T: 51 QT: 388 QTc: 434 Interpretive Statements SINUS RHYTHM WITH SINUS ARRHYTHMIA LOW QRS VOLTAGE IN PRECORDIAL LEADS Since prior tracing, no significant change Procedure Note Coty Jeronimo MD - 01/06/[address]: 2025-01-06 Pat Name: TELMA NAVARRETE Department: 112 Room: Gender: Female Clinical Laboratory Science Professor: : 1985 Requested By: COTY JERONIMO Order Number: [id number] Reading MD: Coty Jeronimo Measurements Intervals [place] Rate: 75 P: 63 TX: 165 QRS: 44 QRSD: 97 T: 51 QT: 388 QTc: 434 Interpretive Statements SINUS RHYTHM WITH SINUS ARRHYTHMIA LOW QRS VOLTAGE IN PRECORDIAL LEADS Since prior tracing, no significant change us Coty Jeronimo MD PROCEDURES-ORDERABLE NO CHARGE Final Result Performing Organization Address City/State/[facility] Co de Phone Number DEEPAK SNYDER from Last 3 Months Insurance [employer] Care Teams Fan Installer Relationship Specialty Start Date End Date Tanya Gamino NP [address] [place] [address] PCP - General 12/29/23 Coty Jeronimo MD [facility]. [facility] [address] [place] [address] Brady Business Analyst Sales Operations CARDIOVASCULAR DISEASE 10/04/15
--- OUTSIDE RECORDS SUMMARY | 2025-01-19 12:36 | XMS_ITS | Clinical Summary ---
Author Organization [facility] Address [address] [place] [address] Phone Care Team Providers Care Greens Cutter Name Role Phone Ashley Jose MD Primary Care Provider [phone] Allergies Active Allergy Reactions Criticality Noted Date [...] Comments Blood Pressure 110/76 07/04/2021 11:01 AM MACHINERY MOVER Pulse 88 07/04/2021 11:01 AM MACHINERY MOVER Temperature 37 C (98.6 F) 07/04/2021 11:01 AM MACHINERY MOVER Respiratory Rate 15 07/04/2021 11:01 AM MACHINERY MOVER Oxygen Saturation 98% 07/04/2021 11:01 AM MACHINERY MOVER Inhaled Oxygen Concentration - - Weight - [...] to complete this topic Insurance Care Teams Greens Cutter Relationship Specialty Start Date End Date Ashley Jose MD [address] [place] [address] PCP - General Internal Medicine 07/04/21
--- OUTSIDE RECORDS SUMMARY | 2025-01-19 12:36 | XMS_ITS | Encounter Summary ---
Author Organization [facility] Address [facility] [place] [address] Care Team Providers Care Fund Raiser Name Role Phone Iva Jeronimo MD Unavailable [phone] Ashley Jose MD Primary Care Provider [phone] Fredy Alonzo MD Primary Care Provider [phone] Tanya Gamino NP Primary Care Provider [phone] Encounter Details Date Type Department Care Team (Late st Contact Info) Description 06/13/2022 Abstract [facility] [id number] Griselda Bhakta MA Social History Tobacco Use Types Packs/Day Years Used Date Smoking Tobacco: Never Smokeless Tobacco: Never Comments:[facility] with [facility] hand [facility] bit [...] Coronavirus/COVID-19? 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 [place], [place] [id number] documented as of this encounter Procedures Procedure [...] documented as of this encounter Care Teams Fund Raiser Relationship Specialty Start Date End Date Ashley Jose MD [facility]. [facility] [address] [place] [address] PCP - General INTERNAL MEDICINE 05/05/16 06/16/22 Fredy Alonzo MD [address] [place] [address] PCP - General 06/17/22 12/28/23 Tanya Gamino NP [address] [place] [address] PCP - General 12/29/23 Iva Jeronimo MD Three [facility]. [facility] [address] [place] [address] Brady Instructor Tap Dancing CARDIOVASCULAR DISEASE 10/04/15 documented as of this encounter
--- OUTSIDE RECORDS SUMMARY | 2025-01-19 12:36 | XMS_ITS | Patient Health Record ---
Author Organization [facility] [address] [facility] Address [address] [facility] [address] [place] [address] Care Team Providers Care Manager Drug Safety Name Role Phone Tanya Gamino APRN Primary Care Provider Ramos Dickey Unavailable [phone] Allergies No Known Allergies Reason For Referral No Information Medications Medication SIG (Take, Route, Frequency, Duration) Notes Start Date End Date Status Losartan Potassium 25 MG Tablet Oral 09/24/2023 Active FLUoxetine HCl 40 MG Capsule 1 capsule Oral Once a day; Duration: 30 days Active Zepbound 10 MG/0.5ML Solution Auto-injector ADMINISTER 10 MG UNDER THE SKIN WEEKLY Subcutaneous; Duration: 28 Days Active MIRENA 21 MCG/24 HR (UP TO 8 YEARS) 52 MG INTRAUTERINE DEVICE *Reorder from [employer] for eRx and Interaction Alerts* 09/24/2023 Active ProAir HFA 108 (90 Base) MCG/ACT Aerosol Solution Inhalation 09/24/2023 Active lamoTRIgine 100 MG Tablet 1 tablet Oral Once a day; Duration: 30 days Active amLODIPine Besylate 10 MG Tablet Oral 09/24/2023 Active Metoprolol Succinate ER 25 MG Tablet Extended Release 24 Hour Oral 09/24/2023 Active Immunizations Vaccine Route Administration Date Status Comme nts Pfizer Biontech Covid-19 Vac cine 2nd dose Unknown 07/20/2020 Administered Pfizer [employer]iontech Covid-19 Vac cine 2nd dose Unknown 08/13/2020 Administered Pfizer [employer]ion[employer] Covid-19 Vac cine 2nd dose Unknown 04/16/2021 Administered Social History Tobacco Use: Social History Observation Description Date Details (start date - stop date) Never Smoker NA - NA Sex Assigned At : Social History Observation Description Sex Assigned At Female Social History Tobacco Use: Social Info Question Answer Notes Tobacco Control (Standard) Tobacco use: Nonsmoker Additional Details Category Social Info Options Details Migrated Social History Migrated Social History Alcohol Intake: None 03/26/2023,Tobacco Years: Never smoker 02/05/2018,Smoking Status: 0 03/26/2023 Problems Problem Type SNOMED Code ICD Code Onset Dates Problem Status W/U Status Risk Notes Problem Depressed bipolar I disorder in remission (01839986) Bipolar disorder, in partial remission, most recent episode depressed (F31.75) Active confirmed Problem Generalized social phobia (46212516) Social phobia, generalized (F40.11) Active confirmed Problem Generalized anxiety disorder (80009395) Generalized anxiety disorder (F41.1) Active confirmed Vital Signs Heart Rate 74 /min 09/23/2024 Height-cm 162.56 cm 09/23/2024 Blood pressure diastolic 72 mm Hg 09/23/2024 Weight-kg 98.88 kg 09/23/2024 Height 64.00 in 09/23/2024 Blood pressure systolic 106 mm Hg 09/23/2024 Weight 218 lbs 09/23/2024 BMI 37.42 kg/m2 09/23/2024 Encounters Encounter Location Date Provider Diagnosis [facility] [address] [place] [address] 03/25/2024 Ramosulisses Crookoza Bipolar disorder, in partial remission, most recent episode depressed F31.75 ; Generalized anxiety disorder F41.1 and Social phobia, generalized F40.11 [facility] [address] [place] [address] 09/23/2024 Ramos Cabezas Negative depression screening Z13.31 ; Bipolar disorder, in partial remission, most recent episode depressed F31.75 ; Encounter for screening for cardiovascular disorders Z13.6 ; Generalized anxiety disorder F41.1 and Social phobia, generalized F40.11 [facility] [address] [place] [address] 12/29/2024 Ramos Cabezas Bipolar disorder, in partial remission, most recent episode depressed F31.75 Assessments Encounter Date Diagnosis (ICD Code) Assessment Notes Treatment Notes Treatment Clinical Notes Section Notes 03/25/2024 Bipolar disorder, in partial remission, most [...] any concerns or changes in symptoms arise. 09/23/2024 Bipolar disorder, in partial remission, most recent episode depressed (ICD-10 - F31.75) 09/23/2024 Negative depression screening (ICD-10 - Z13.31) 12/29/2024 Bipolar disorder, in partial remission, most recent episode depressed (ICD-10 - F31.75) 09/23/2024 Encounter for screening for cardiovascular disorders (ICD-10 - Z13.6) 03/25/2024 Social phobia, generalized (ICD-10 - F40.11) [...] any concerns or changes in symptoms arise. 09/23/2024 Generalized anxiety disorder (ICD-10 - F41.1) 09/23/2024 Social phobia, generalized (ICD-10 - F40.11) 09/23/2024 Jose M Navarrete, female, presents with ongoing management of ADHD and mood symptoms, reporting increased irritability and sleep disturbances. Attention Deficit Hyperactivity Disorder (ADHD) Assessment: Patient continues to manage ADHD symptoms with current medication regimen. Reports feeling that medications are working well overall. No significant changes in ADHD symptoms noted. Plan: - Continue modafinil - Continue fluoxetine Mood Symptoms (Irritability) Assessment: Patient reports increased frequency of irritability, particularly in response to interruptions and interactions with others. She notes this may be related to hormonal changes, possibly perimenopause, as the irritability pattern is similar to premenstrual symptoms but occurring more often. Patient is able to communicate her needs for space when feeling irritable. Plan: - Monitor mood symptoms and their frequency - Encourage continued use of communication strategies to manage irritability Sleep Disturbances Assessment: Patient reports sleep difficulties, primarily attributed to external factors such as her 's sleep schedule. No significant change in sleep pattern noted compared to baseline. Plan: - Continue to monitor sleep patterns - Encourage sleep hygiene practices Social Functioning Assessment: Patient reports improvement in social engagement, including reconnecting with old friends and participating in social activities such as music bingo. This indicates positive progress in managing anxiety related to social situations. Plan: - Encourage continued social engagement and activities the note is transcribed using speech recognition software. It is a reflection of a visit with the patient. It might have some inaccuracy, including medication names and transcribing errors, though efforts have been made to correct them. Plan Of Treatment Next Appt Details Provider Name:Ramos Kohler Armaanrena brennon, 03/24/2025 08:45:00 AM, [address], [facility] [address], [place], [address], Insurance Providers Payer Name Payer Address Payer Phone Subscriber Number Group Number Insured Name Patient Relationship to Insured Coverage Start Date Coverage End Date [employer] [address] [place] [address] [id number] TELMA NAVARRETE Self - patient is the insured Medical (General) History Medical History History ICD Code Problems: Bipolar affective disorder, cu rrent episode depression Bipolar disorder Generalized anxiety disorder Generalized social phobia , Imported from Highlights: On 06/28/2016, the patient had an office visit with Dr. Ashley Jose for bipolar disorder, obesity, palpitations, and vitamin D deficiency. Subsequent visits on 08/27/2016 and 12/27/[address] Jose addressed bipolar disorder, gastroesophageal reflux disease without esophagitis, obesity, and palpitations, with elevated blood-pressure readings noted in August. On 07/01/2017, the patient returned to Dr. Jose for bipolar disorder, obesity, palpitations, and vitamin D deficiency. A visit on 07/09/2017 was for an upper respiratory infection. On 07/08/2018, the patient had an adult health examination with Dr. Jose, where bipolar disorder was again noted. On 12/30/2023, Ronny Moser CMA, placed orders at [facility]. On 01/01/2024, the patient was seen by Anila Winter APRN, at [facility] for essential hypertension, hypertriglyceridemia, morbid obesity, and palpitations Surgical History Surgery Date(Month/Year) Other 05/17/2010
--- OUTSIDE RECORDS SUMMARY | 2025-01-19 12:36 | XMS_ITS | Encounter Summary ---
Author Organization [facility] Address [facility] [place] [address] Care Team Providers Care Preventive Maintenance Engineer Name Role Phone Iva Jeronimo MD Unavailable [phone] Ashley Jose MD Primary Care Provider [phone] Fredy Alonzo MD Primary Care Provider [phone] Tanya Gamino NP Primary Care Provider [phone] Encounter Details Date Type Department Care Team (Late st Contact Info) Description 07/31/2016 Abstract [facility] AT [address] [address] Griselda Bhakta MA Social History [...] AM CDT Office Visit [facility], [address] [address] Anila Winter APRN [facility] [address] [facility] [place] [address] documented as of this encounter Procedures Procedure [...] Final * CBC (OUTSIDE LAB) (07/08/2018) Pathologist [facility] WBC 8.9 HGB 13.8 HCT 41.2 PLT 363 07/08/2018 us [facility] Abstract LAB-OUTSIDE/ABSTRACTED Final Result * LIPID PANEL (07/08/2018) Pathologist [facility] CHOLESTEROL 158 HDL 54 TRIGLYCERIDES 230 LDL (CALCULATED) 58 07/08/2018 us Doc [facility] Abstract LABORATORY Final Result * HEMOGLOBIN, GLYCOSYLATED (07/08/2018) Pathologist [facility] HGB A1C 5.1 07/08/2018 us Doc [facility] Abstract LABORATORY Final Result * THYROID STIM HORMONE, TSH (07/08/2018) Pathologist [facility] TSH 0.837 07/08/2018 us Doc [facility] Abstract LABORATORY Final Result * (ABNORMAL) COMPREHENSIVE METABOLIC PANEL (07/29/2016) Pathologist [facility] SODIUM S/P/B 137 POTASSIUM S/P/B 4.6 CO2 [...] Result * CBC (OUTSIDE LAB) (07/29/2016) Pathologist [facility] WBC 8.6 HGB 13.7 HCT 40 PLT 318 07/29/2016 us Doc [facility] Abstract LAB-OUTSIDE/ABSTRACTED Edite d Result - Final * LIPID PANEL (07/29/2016) Pathologist [facility] CHOLESTEROL 167 HDL 59 TRIGLYCERIDES 217 LDL (CALCULATED) 65 07/29/2016 us Doc [facility] Abstract LABORATORY Final Result * THYROID STIM HORMONE, TSH (07/29/2016) Pathologist [facility] TSH 1.310 07/29/2016 us Doc [facility] Abstract LABORATORY Final Result * VITAMIN D, 25 OH (07/29/2016) Pathologist [facility] VITAMIN D 25 HYDROXY S/P/B 16.3 07/29/2016 us Doc [facility] Abstract LABORATORY Final Result documented in this encounter Visit Diagnoses Not on filedocumented in this encounter Additional Health Concerns Assessment Noted Time A Body Mass Index follow-up plan has been documented for the patient 03/08/2016 1:54 AM CDT documented as of this encounter Care Teams Preventive Maintenance Engineer Relationship Specialty Start Date End Date Ashley Jose MD [facility]. [address] [address] PCP - General INTERNAL MEDICINE 05/05/16 06/16/22 Fredy Alonzo MD [address] [place] [address] PCP - General 06/17/22 12/28/23 Tanya Gamino NP [address] [place] [address] PCP - General 12/29/23 Iva Jeronimo MD [facility]. [address] [address] Brady Bundle Sorter CARDIOVASCULAR DISEASE 10/04/15 documented as of this encounter
--- OUTSIDE RECORDS SUMMARY | 2025-01-19 12:36 | XMS_ITS | Encounter Summary ---
Author Organization [facility] Address [facility] [place] [address] Care Team Providers Care Respiratory Services Manager Name Role Phone Iva Jeronimo MD Unavailable [phone] Ashley Jose MD Primary Care Provider [phone] Fredy Alozno MD Primary Care Provider [phone] Tanya Gamino NP Primary Care Provider [phone] Encounter Details Date Type Department Care Team (Latest Contact Info) Description 03/10/2018 Abstract [facility] , Luis E Wu MD [...] Description 01/12/2026 10:15 AM CDT Office Visit [facility] [address] [facility], [address] [place], [place] [id number] Anila Winter APRN Three [facility]. [address] [place], [place] [id number] documented as of this encounter Visit Diagnoses Not on filedocumented in this encounter Additional Health Concerns Assessment Noted Time A Body Mass Index follow-up plan has been documented for the patient 03/08/2016 1:54 AM CDT documented as of this encounter Care Teams Respiratory Services Manager Relationship Specialty Start Date End Date Ashley Jose MD Three [facility]. [facility] [address] [place] [address] PCP - General INTERNAL MEDICINE 05/05/16 06/16/22 Fredy Alonzo MD [address] [place] [address] PCP - General 06/17/22 12/28/23 Tanya Gamino NP [address] [place] [address] PCP - General 12/29/23 Iva Jeronimo MD Three [facility]. [facility] [address] [place] [address] Brady Soda Fountain Operator CARDIOVASCULAR DISEASE 10/04/15 documented as of this encounter
== END 2025-01-19 12:27 | disposition home or self-care (01) ==
PROVIDERS: PCP Nurse Practitioner Adult Health; Visit Provider Nurse Practitioner Adult Health
DX: Z12.31 Encounter for screening mammogram for malignant neoplasm of breast (principal)
CPT/HCPCS: 77063; 77067